=== PATIENT | female | born 1990 | race Caucasian/White ===

== ENCOUNTER 2020-01-10 12:27 | Outpatient (CLI) | payer BC, SELFPAY ==
--- NOTE | ~2020-01-10 | US_ITS ---
EXAMINATION: US pelvic complete w TV EXAM DATE: 01/10/2020 13:15 INDICATION: Irregular periods. TECHNIQUE: Pelvic transabdominal and transvaginal sonogram was performed. There are multiple graysca le and Doppler images available for interpretation. There is no prior study for comparison. FINDINGS: Uterus measures 6.5 x 3.2 x 3.2 cm, and is morphologically normal. Endometrial stripe juana sures 17 mm, borderline enlarged. Could be phasic. There is small free pelvic fluid. Right adnexa: The ovary is not identified. There is no adnexal mass. Left adnexa: The ovary measures 2.5 x 2.3 x 1.9 cm and is morphologically normal. Ovarian vascular fl ow confirmed. IMPRESSION: 1. Borderline endometrial thickening, consider 6 week follow-up pelvic sonogram. Reviewed, dictated and finalized at location A. IMPRESSION: 1. Borderline endometrial thickening, consider 6 week follow-up pelvic sonogra m.
== END 2020-01-10 12:28 | disposition home or self-care (01) ==
PROVIDERS: Visit Provider Student in an Organized Health Care Education/Training Program
DX: N92.6 Irregular menstruation, unspecified (principal)
CPT/HCPCS: 76830; 76856

== ENCOUNTER 2020-03-01 00:16 | Outpatient (CLI) | payer BC, SELFPAY ==
[2020-03-01 18:11] LABS: SARS-CoV-2 RNA PCR Negative
== END 2020-03-01 00:17 | disposition home or self-care (01) ==
LOC: ANHCOVIDDT 00:16
PROVIDERS: Visit Provider Student in an Organized Health Care Education/Training Program
DX: Z20.828 Contact with and (suspected) exposure to other viral communicable diseases (principal); Z01.812 Encounter for preprocedural laboratory examination
CPT/HCPCS: 87635; C9803; U0003

== ENCOUNTER 2020-03-03 02:39 | Day surgery (SDC) | payer BC, SELFPAY ==
[2020-02-21 13:57] VITALS: BMI 42.3
--- NOTE | 2020-03-03 03:36 | PM.IMHP ---
H&P: HPI History of Present Illness Chief complaint: irregular periods Narrative: Mabel Gonzalez is a 30 year old nulligravid female who initially presented to the obstetrics gyn physician office with complaints of irregular menses. During evaluation, an EMB was performed which showed simple and focally complex hyperplasia without atypia. After discussion with patient regarding findings, decision made to proceed with hysteroscopy/D&C for more extensive evaluation of the endometrial cavity. Patient reports feeling well today without complaints. Review of Systems Review of Systems: All systems reviewed & are unremarkable except as noted in HPI and below Constitutional: Constitutional: Reports as per HPI, Reports no additional constitutional complaints, Denies chills, Denies fever(s), Denies headache(s) and Denies night sweats Eyes: Eyes: Reports as per HPI and Reports no additional eye complaints ENT: Reports system reviewed and no additional complaints, except as documented, Reports as per HPI, Reports Normal hearing present and Denies headache(s) Cardiovascular: Cardiovascular: Reports as per HPI, Reports no additional cardiovascular complaints, Denies chest pain and Denies dyspnea Respiratory: Respiratory: Reports as per HPI, Reports no additional respiratory complaints, Denies cough and Denies dyspnea Gastrointestinal: Gastrointestinal: Reports as per HPI, Reports no additional gastrointestinal complaints, Denies abdominal pain, Denies change in bowel habits, Denies change in stool character, Denies nausea and Denies vomiting Genitourinary: Genitourinary: Reports no additional female genitourinary complaints, Reports as per HPI, Denies abnormal vaginal bleeding, Denies genital lesions, Denies hot flashes, Denies dyspareunia, Denies pelvic pain, Denies sexual dysfunction, Denies urinary incontinence, Denies vaginal discharge, Denies vaginal dryness and Denies vaginal odor Musculoskeletal: Musculoskeletal: Reports no additional musculoskeletal complaints and Reports as per HPI Integumentary/Breasts: Skin/Breast: Reports system reviewed and no additional complaints, except as docu, Reports as per HPI, Denies breast pain and Denies nipple discharge Neurologic: Reports system reviewed and no additional complaints, except as documented, Reports as per HPI, Reports Normal hearing present and Denies headache(s) Psychiatric: Psychiatric: Reports no additional psychiatric complaints, Reports as per HPI, Denies anxiety and Denies depression Endocrine: Endocrine: Reports no additional endocrine complaints and Reports as per HPI Hematologic/Lymphatic: Hematologic/Lymphatic: Reports no additional hematologic/lymphatic complaints and Reports as per HPI Allergic/Immunologic: Allergic/Immunologic: Reports no additional allergic/immunologic complaints and Reports as per HPI PMFSH Past Medical History Medical History Anxiety Asthma Benign ovarian tumor Migraine Surgical History Surgical History History of laparoscopy [place] teeth removed Family History Family History Sibling Breast cancer Mother Breast cancer Diabetes mellitus Hypertension Grandparent Diabetes mellitus Acute myocardial infarction Hypertension Cerebrovascular accident Throat cancer Pancreatic cancer Social History Social History Smoking status: Never smoker Alcohol intake: never Substance use: never Meds Home Medications and Allergies Home Medications Medication Instructions Recorded Confirmed Type lemzazczvj-uuaavlsfbgjye-suyhipsr 1 cap PO Q8H PRN 01/04/20 02/21/20 History 50 mg-300 mg-40 mg capsule cetirizine 10 mg capsule 10 mg PO DAILY PRN 01/04/20 02/21/20 History famotidine 20 mg tablet 20 mg PO DAILY PRN 01/04/20 02/21/20 History loratadine 10 mg ca
[2020-03-03 06:45] VITALS: BP 134/80; PULSE 96; RESP 18; TEMP 36.4; O2SAT 100; BMI 42.4
--- NOTE | 2020-03-03 07:24 | WPDHPUPDATE1 ---
History and Physical Update Update Date/Time: 03/03/20 07:24 History and Physical has been reviewed, including an updated exam of the patient. There are NO changes in the patient's condition. Risks, benefits, and alternatives have been discussed and questions answered. Patient agrees to proceed with procedure.
[2020-03-03] MEDS: LACTATED RINGERS 1,000 ML 30 ML IV CONT (07:25)
--- NOTE | 2020-03-03 07:38 | WPDANESEPPF ---
Anes - Initial Pre Proc Eval Procedure: Operation Date: 03/03/20 08:30 Proposed Procedures p Hysteroscopy, Dilation and Curettage, Possible Myosure - Tammie Mendoza MD Date/Time: 03/03/20 07:38 Surgeon: Tammie Mendoza MD Pre Op Diagnosis: irregular periods Patient Data Age: 30 Gender: F Height: 5 ft 2 in Weight: 105.3 kg Last Vital Signs Temp 36.4 C 03/03/20 06:45 Pulse 96 03/03/20 06:45 Resp 18 03/03/20 06:45 BP 134/80 03/03/20 06:45 Pulse Ox 100 03/03/20 06:45 Allergies Allergy/AdvReac Type Severity Reaction Status Date / Time No Known Allergies Allergy Verified 03/03/20 07:31 Home Medications Medication Instructions Recorded Confirmed Type lmtbpoytcq-qywtpfqftibvw-hrbjutcq 1 cap PO Q8H PRN 01/04/20 03/03/20 History 50 mg-300 mg-40 mg capsule cetirizine 10 mg capsule 10 mg PO DAILY PRN 01/04/20 03/03/20 History famotidine 20 mg tablet 20 mg PO DAILY PRN 01/04/20 03/03/20 History loratadine 10 mg capsule 10 mg PO DAILY PRN 01/04/20 03/03/20 History multivitamin 1 tablet PO DAILY 01/04/20 03/03/20 History drospirenone (contraceptive) 4 mg 4 mg PO DAILY 24 Days #3 packet 01/13/20 03/03/20 Rx (28) tablet Patient hx anesthesia problems: none Family hx anesthesia problems: none PMFSH Past Medical History Medical History (Updated 03/03/20 @ 07:39 by Michel Lanier MD) Anxiety Asthma Benign ovarian tumor Migraine Morbid obesity Surgical History Surgical History History of laparoscopy [place] teeth removed Family History Family History Sibling Breast cancer Mother Breast cancer Diabetes mellitus Hypertension Grandparent Diabetes mellitus Acute myocardial infarction Hypertension Cerebrovascular accident Throat cancer Pancreatic cancer Social History Social History Smoking status: Never smoker Alcohol intake: never Substance use: never Anes - Eval Final PreProcedure Day of Procedure 03/03/20 07:38 Patient weight: morbidly obese Heart: regular rate and rhythm Lungs: clear to auscultation Airway: Mallampati scale class II Neurological: alert and oriented Last oral intake: >/= 8 hours ASA classification: III Emergent: no Anesthetic plan: proceed Anesthesia type and monitoring: general GIVS and standard monitoring Informed Consent: The patient's anesthetic plan and its attendant risks and benefits were discussed with the patient/family/POA. Questions were solicited and answers provided to the satisfaction of the patient/family/POA.
[2020-03-03] MEDS: KETOROLAC 30 MG/ML VIAL (*BKC) IV PUSH (08:33)
--- NOTE | 2020-03-03 08:42 | SUR.OPER ---
Ebl=10ml
[2020-03-03 08:48] VITALS: BP 137/86; PULSE 88; RESP 14
--- NOTE | 2020-03-03 09:07 | P.OP_ITS ---
Procedure Note - Detailed Date of procedure: 03/03/20 Pre-op diagnosis: endometrial hyperplasia Post-op diagnosis: same Procedure performed: Hysteroscopy Dilation and curettage Description of procedure: The patient was taken to the operating room where she self transferred to the operating room table. The patient was placed in dorsal supine position. Anesthesia was administered and found to be adequate. The patient was repositioned in the dorsal lithotomy position with the use of Norberto stirrups. Patient was prepped and draped in the usual sterile fashion. A red rubber catheter was used to drain the bladder of 100 cc of yellow urine. A bivalve speculum was inserted into the vagina. The cervix was well visualized and the anterior lip of the cervix was grasped with a single-tooth tenaculum. A paracervical block was performed with 1% lidocaine. 5 cc of lidocaine was administered on either side. The cervix was serially dilated to accommodate a hysteroscope. The hysteroscope was introduced into endometrial cavity. On inspection, the cavity appeared clear with extremely minimal tissue seen. No abnormalities were noted. Bilateral tubal ostia were visualized. Several photographs were taken and the hysteroscope was removed. A medium-sized rigid curette was used to perform a curettage. All quadrants of the endometrial cavity were explored. Scant endometrial tissue was obtained and prepared to be sent to pathology for analysis. The tenaculum was removed. Minimal bleeding was noted from the tenaculum puncture sites. Bleeding was made hemostatic with silver nitrate. Excellent hemostasis was noted. The vagina was cleansed and dried and the speculum was removed. The remainder of the patient was also cleansed and dried. The patient was taken out of the dorsal lithotomy position and awakened from anesthesia without difficulty. She was transported to recovery room in stable condition. All instrument counts were correct at the end of the procedure. The patient tolerated the procedure well. Anesthesia: MAC Surgeon: Tammie Mendoza MD Gis Application Developer: None Estimated blood loss (mL): 10 IV fluids (mL): 700 Urine output (mL): 100 Drains: No Packing: No Pathology: yes (endometrial curettings) Complications: No immediate complications Condition: stable Disposition: PACU Findings: Hysteroscopic fluid: 400cc in/400cc out Intraoperative findings: Normal-appearing endometrial cavity, no abnormalities noted, scant tissue, bilateral tubal ostia visualized.
[2020-03-03 09:15] VITALS: BP 130/74; PULSE 77; RESP 14
[2020-03-03 09:40] VITALS: BP 140/83; PULSE 80; RESP 14
== END 2020-03-03 09:45 | disposition home or self-care (01) ==
PROVIDERS: Visit Provider Student in an Organized Health Care Education/Training Program
PROC: 0U5B8ZZ Destruction of Endometrium, Via Natural or Artificial Opening Endoscopic (ICD-10-PCS; CPT 58563; principal; 2020-03-03 08:30)
DX: N85.00 Endometrial hyperplasia, unspecified (principal); E66.01 Morbid (severe) obesity due to excess calories; Z68.41 Body mass index [BMI] 40.0-44.9, adult
CPT/HCPCS: 58558; 88305; A9270; J0131; J1885; J2250; J2405; J2704; J3010; J7030; J7120

== ENCOUNTER 2023-11-19 17:20 | Emergency (ER) | payer OTHER, SELFPAY ==
[2023-11-19 17:54] VITALS: BP 129/71; PULSE 101; RESP 16; TEMP 36.6; O2SAT 100
--- NOTE | 2023-11-19 18:40 | ED.URI ---
HPI - URI/Sore Throat General Chief Complaint: Upper Respiratory Infection Stated Complaint: sorethroat Time Seen by Provider: 11/19/23 18:35 Source: patient and RN notes reviewed Mode of arrival: ambulatory Limitations: no limitations History of Present Illness HPI Narrative: 33-year-old female presents with concern for sore throat that started this morning she reports painful swallowing headache, fatigue, general malaise. Denies fever. She reports she took cold medicines this morning. Denies known sick contacts MD elicited complaint: sore throat and nasal congestion Related Data Home Medications Medication Instructions Recorded Confirmed wulxhehbig-jaxxwpwkicitz-tkosbkzc 1 cap PO Q8H PRN Migraine Headache 01/04/20 07/02/23 50 mg-300 mg-40 mg capsule cetirizine 10 mg capsule 10 mg PO DAILY PRN Allergy Symptoms 01/04/20 07/02/23 multivitamin (Daily Multi-Vitamin 1 tablet PO DAILY 01/04/20 07/02/23 tablet) atorvastatin 20 mg tablet 20 mg PO DAILY 07/02/23 07/02/23 erenumab-aooe 70 mg/mL 70 mg subcut MONTHLY 07/02/23 07/02/23 subcutaneous auto-injector (Aimovig Autoinjector) finasteride 5 mg tablet 5 mg PO DAILY 07/02/23 07/02/23 metformin 1,000 mg tablet 1,000 mg PO BID 07/02/23 07/02/23 omega 2-yng-koh-fish oil 1,200 mg cap PO 07/02/23 07/02/23 (144 mg-216 mg) capsule (Fish Oil) propranolol 10 mg tablet 10 mg PO .prn 07/02/23 07/02/23 semaglutide 0.25 mg or 0.5 mg (2 0.25 mg subcut WEEKLY 07/02/23 07/02/23 mg/3 mL) subcutaneous pen injector (Ozempic) sertraline 50 mg tablet 50 mg PO DAILY 07/02/23 07/02/23 testosterone enanthate 100 mg/0.5 200 mg subcut WEEKLY 07/02/23 07/02/23 mL subcutaneous auto-injector rimegepant 75 mg disintegrating mg 11/19/23 tablet (Nurtec ODT) Allergies Allergy/AdvReac Type Severity Reaction Status Date / Time No Known Allergies Allergy Verified 11/19/23 18:01 Review of Systems Review of Systems: CONSTITUTIONAL: Reports malaise, fever. Denies chills, sweats, or fever. EYES: Denies visual changes, redness, or discharge. ENT: Reports rhinorrhea, congestion, and sore throat. CARDIOVASCULAR: Denies chest pain, palpitations, or edema. RESPIRATORY: Reports cough. Denies dyspnea. GASTROINTESTINAL: Denies abdominal pain, nausea, vomiting, diarrhea SKIN: Denies rash or itching. MUSCULOSKELETAL: Denies myalgia. NEUROLOGIC: Reports headache. All systems reviewed & are unremarkable except as noted in HPI and below PMFSH Past Medical History Medical History Anxiety Asthma Benign ovarian tumor Hyperlipidemia Migraine Morbid obesity Type 2 diabetes mellitus Surgical History Surgical History H/O dilation and curettage History of hysteroscopy History of laparoscopy [place] teeth removed Family History Family History Sibling Breast cancer Mother Breast cancer Diabetes mellitus Hypertension Grandparent Diabetes mellitus Acute myocardial infarction Hypertension Cerebrovascular accident Throat cancer Pancreatic cancer Social History Social History (Updated 07/02/23 @ 08:04 by Cassie Burns CMA) Smoking status: Never smoker Alcohol intake: never Substance use: current Substance use type: marijuana Lack of Transportation: No Lack of Food: Never True Current Housing: I Have Housing Concerned About Future Housing: No Difficulty Paying Gas/Electric Bills: YES Difficulty Paying for Meds: No Currently Unemployed: No Education: Bachelor's Degree Comments At time of signature, agree with nursing past medical, surgical, social and family history. There is no relevant family history pertinent to the presenting complaint Exam Narrative: GENERAL: Well-appearing, well-nourished, and in no acute distress. HEAD: Normocephalic EYES: PERRL
== END 2023-11-19 18:51 | disposition home or self-care (01) ==
PROVIDERS: Emergency Provider Nurse Practitioner
DX: J06.9 Acute upper respiratory infection, unspecified (principal); F12.90 Cannabis use, unspecified, uncomplicated; J45.909 Unspecified asthma, uncomplicated; E78.5 Hyperlipidemia, unspecified; E11.9 Type 2 diabetes mellitus without complications; E66.01 Morbid (severe) obesity due to excess calories; Z68.41 Body mass index [BMI] 40.0-44.9, adult; F41.9 Anxiety disorder, unspecified
CPT/HCPCS: 87081; 87880; 99213; G0463

== ENCOUNTER 2024-12-07 13:06 | Outpatient (CLI) | payer OTHER, SELFPAY ==
--- NOTE | ~2024-12-07 | US_ITS ---
EXAMINATION: US pelvic complete w TV INDICATION: Abnormal periods. Comparison:No prior studies for comparison. TECHNIQUE: Multiple transabdominal and endovaginal sonographic images of the pelvis performed. FINDINGS: The uterus measures 5.4 x 3.9 x 4.4 cm. The endometrial complex measures 5 mm. The right ovary measures 1 x 1.2 x 1.2 cm and the left ovary measures 3.6 x 3.3 x 3.1 cm. There are small follicles in each ovary. There is a left ovarian simple cyst measuring 3.8 x 3.6 x 2.7 cm. Norm al doppler signal in both ovaries. There is no free fluid in the pelvis. There are no abnormal masses seen on either side. IMPRESSION: 1. Simple cyst of the left ovary measuring 3.8 cm. Reviewed, dictated and finalized at location A.
--- OUTSIDE RECORDS SUMMARY | 2024-12-07 15:14 | XMS_ITS | Encounter Summary ---
Author Organization [facility] - [facility] Address [address] [place] [address] Care Team Providers Care Records Assistant Name Role Phone Anastasia Lawson DO Primary Care Provider [phone] Encounter Details Date Type Department Care Team (Late st Contact Info) Description 05/28/2023 [employer] Message Enc [facility] Medical Group Multispecialty Care - [facility] [address], [address] [place] [address] Pete, [facility] Provider FMLA paperwork Social History Tobacco Use Types Packs/Day Years Used Date Smoking Tobacco: Never Smokeless Tobacco: Never Alcohol Use Standard Drinks/Week Comments Never 0 (1 standard drink = 0.6 oz pur e alcohol) PHQ-2 Answer Date Recorded Patient Health Questionnaire-2 Score 1 03/28/2023 Comments No Sex and Gender Information Value Date Recorded Sex Assigned at Not on file Legal Sex Female 12:13 PM CDT Gender Identity Not on file Sexual Orientation Not on file documented as of this encounter Plan of Treatment Not on file documented as of this encounter Visit Diagnoses Not on filedocumented in this encounter Additional Health Concerns Assessment Noted Time PHQ-9 Depression Total Score: 14 023 7:55 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
--- OUTSIDE RECORDS SUMMARY | 2024-12-07 15:14 | XMS_ITS | Encounter Summary ---
Author Organization [facility] Address [facility] [place] [address] Care Team Providers Care Director Child Abuse Therapy Name Role Phone Anastasia Laswon DO Primary Care Provider [phone] Encounter Details Date Type Department Care Team (Late st Contact Info) Description 06/10/2024 [employer] Message Enc [facility] Medical Group Family Medicine [address], [address] [place] [id number] Anastasia Lawson DO [address] [place], [place] [id number] pap smear Social History Tobacco Use Types Packs/Day Years Used Date Smoking Tobacco: Never Smokeless Tobacco: Never Alcohol Use Standard Drinks/Week Comments Never 0 (1 standard drink = 0.6 oz pur e alcohol) PHQ-2 Answer Date Recorded Patient Health Questionnaire-2 Score 0 11/18/2023 Comments No Sex and Gender Information Value [...] Depression Total Score: 14 023 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
--- OUTSIDE RECORDS SUMMARY | 2024-12-07 15:14 | XMS_ITS | Clinical Summary ---
Author Organization [facility] Address [address] [place] [address] Care Team Providers Care Car Porter Name Role Phone Unavailable Primary Care Provider Unavailabl e Source Comments [facility],non-owned Affiliates and Associated Physician Practices is amultiple site organization consisting of ambulatory clinics and hospital sitesin [place], [place], [place] and [place]. This disclosure is being madepursuant to the Care Everywhere program and may not contain all information available regarding this patient. Last updated 18.[facility] [employer] Social History Tobacco Use Types Packs/Day Years Used Date Smoking Tobacco: Never Assessed Sex and Gender Information Value Date Recorded Sex Assigned at Not on file Gender Identity Not on file Sexual Orientation Not on file Plan of Treatment Health Maintenance Due Date Last Done Comments PAP SMEAR 1990 HIV SCREENING 2005 HEPATITIS C SCREENING 01/26/2008 DTAP/TDAP/TD VACCINES (1 - Tdap) 2009 HEPATITIS B VACCINE (1 of 3 - 19+ 3-dose series) 2009 COVID-19 VACCINE ( - 2023-2 5 season) 2024 INFLUENZA VACCINE (#1) 2024 DEPRESSION SCREENING 09/15/2024 ZOSTER VACCINE (1 of 2) 01/31/2040 HIB VACCINE Aged Out No longer eligi ble based on patient's age to complete this topic HPV VACCINE Aged Out No longer eligi ble based on patient's age to complete this topic MENINGOCOCCAL (Group B) VACC INE SHARED DECISION-MAKING Aged Out No longer eligibl e based on patient's age to complete this topic MENINGOCOCCAL GROUPS A/C/Y/W VACCINE Aged Out No longer eligible b ased on patient's age to complete this topic PNEUMOCOCCAL VACCINE Aged Out No long er eligible based on patient's age to complete this topic
--- OUTSIDE RECORDS SUMMARY | 2024-12-07 15:14 | XMS_ITS | Clinical Summary ---
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 Gender Identity Not on file Sexual Orientation Not on file Plan of Treatment Health Maintenance Due Date Last Done Comments Hepatitis C Virus (HCV) Screening 1990 TdaP Immunization 1990 Hepatitis B Immunization (1 of 3 - 19+ 3-dose series) 2009 Pap Smear 2011 Cervical Cancer Screening (CCS) 01/31/2020 HPV/Cotest 01/31/2020 Influenza Immunization (#1) 2024 SARS-COV-2 Immunization ( season) 2024 Respiratory Syncytial Virus (RSV) Immunization (Adult) (1 - 1-dose 75+ series) 2065 Meningococcal Immunization (ACWY) Aged Out No longer eligible based on patient's age to complete this topic Pneumococcal Immunization Combined Aged Out No longer eligible based on patient's age to complete this topic Rotavirus Immunization Aged Out No lo nger eligible based on patient's age to complete this topic
--- OUTSIDE RECORDS SUMMARY | 2024-12-07 15:14 | XMS_ITS | Encounter Summary ---
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
--- OUTSIDE RECORDS SUMMARY | 2024-12-07 15:14 | XMS_ITS | Encounter Summary ---
Author Organization [facility] - [facility] Address [address] [place] [address] Care Team Providers Care Electrical Engineering Manager Name Role Phone Anastasia Lawson DO Primary Care Provider [phone] Encounter Details Date Type Department Care Team (Late st Contact Info) Description 03/12/2024 [employer] Message Enc [facility] Medical Group Multispecialty Care - [facility] [address] [address], [address] [place] [address] [employer], [facility] Provider Canceled appt. 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 [place] [address] PCP - General FAMILY PRACTICE 09/23/22 documented as of this encounter
--- OUTSIDE RECORDS SUMMARY | 2024-12-07 15:14 | XMS_ITS | Patient Health Record ---
Author Organization [facility], [facility] Address [address] [place] [address] Care Team Providers Care Director Outcomes Name Role Phone Dr. Clark Chadwick Primary Care Provider PrelutskYuri serna Unavailable [phone] Allergies No Known Allergies Results Component Value Reference Range Notes Hemoglobin A1C Reviewed date:09/21/2024 04:25:31 PM Interpretation: Performing Lab: Notes/Report: HbA1c 7.4 Comp. Metabolic Panel (14) Reviewed date:09/22/2024 08:37:23 AM Interpretation: Performing Lab:[facility] [place], [address], [place], Phone - [phone], Director - Mirlande Notes/Report: Glucose 122 70-99 mg/dL BUN 22 6-20 mg/dL Creatinine 0.83 0.57-1.00 mg/dL eGFR 95 >59 mL/min/1.73 BUN/Creatinine Ratio 27 9-23 Sodium 139 134-144 mmol/L Potassium 4.1 3.5-5.2 mmol/L Chloride 101 96-106 mmol/L Carbon Dioxide, Total 19 20-29 mmol/L Calcium 10.4 8.7-10.2 mg/dL Protein, Total 7.5 6.0-8.5 g/dL Albumin 4.9 3.9-4.9 g/dL Globulin, Total 2.6 1.5-4.5 g/dL Bilirubin, Total 0.5 0.0-1.2 mg/dL Alkaline Phosphatase 59 44-121 IU/L AST (SGOT) 28 0-40 IU/L ALT (SGPT) 26 0-32 IU/L Testosterone, Total, LC/MS Reviewed date:09/30/2024 07:21:43 PM Interpretation: Performing Lab:[facility], [address] [facility], Phone - [phone], Director - Ashleigh Notes/Report: Testosterone, Total, LC/MS 226 This test was developed and its performance characteristics determined by [facility]. It has not been cleared or approved by the Food and Drug Administration. Reference Range: Adult Females Premenopausal 10 - 55 Postmenopausal 7 - 40 Hemoglobin A1C Reviewed date:06/17/2024 04:11:26 PM Interpretation: Performing Lab: Notes/Report: HbA1c 6.9 Comp. Metabolic Panel (14) Reviewed date:06/18/2024 08:14:37 PM Interpretation: Performing [facility], [address] [facility], Phone - [phone], Director - Mirlande Notes/Report: Clinical Information:SRC: SRC:TH Glucose 105 70-99 mg/dL BUN 8 6-20 mg/dL Creatinine 0.76 0.57-1.00 mg/dL eGFR 105 >59 mL/min/1.73 BUN/Creatinine Ratio 11 9-23 Sodium 138 134-144 mmol/L Potassium 4.2 3.5-5.2 mmol/L Chloride 99 96-106 mmol/L Carbon Dioxide, Total 24 20-29 mmol/L Calcium 10.3 8.7-10.2 mg/dL Protein, Total 7.7 6.0-8.5 g/dL Albumin 4.8 3.9-4.9 g/dL Globulin, Total 2.9 1.5-4.5 g/dL Bilirubin, Total 0.3 0.0-1.2 mg/dL Alkaline Phosphatase 71 44-121 IU/L AST (SGOT) 23 0-40 IU/L ALT (SGPT) 25 0-32 IU/L CBC With Differential/Platel et Reviewed date:06/18/2024 08:14:37 PM Interpretation: Performing Lab:[facility] [place], [address] [facility], Phone - [phone], Director - Mirlande Notes/Report: Clinical Information:SRC: SRC:TH WBC 11.2 3.4-10.8 x10E3/uL RBC 5.33 3.77-5.28 x10E6/uL Hemoglobin 14.9 11.1-15.9 g/dL Hematocrit 46.1 34.0-46.6 % MCV 87 79-97 fL MCH 28.0 26.6-33.0 pg MCHC 32.3 31.5-35.7 g/dL RDW 13.8 11.7-15.4 % Platelets 336 150-450 x10E3/uL Neutrophils 70 Not Estab. % Lymphs 26 Not Estab. % Monocytes 3 Not Estab. % Eos 1 Not Estab. % Basos 0 Not Estab. % Immature Cells [facility] Neutrophils (Absolute) 7.7 1.4-7.0 x10E3/uL Lymphs (Absolute) 2.9 0.7-3.1 x10E3/uL Monocytes(Absolute) 0.4 0.1-0.9 x10E3/uL Eos (Absolute) 0.1 0.0-0.4 x10E3/uL Baso (Absolute) 0.1 0.0-0.2 x10E3/uL Immature Granulocytes 0 Not Estab. % Immature Grans (Abs) 0.0 0.0-0.1 x10E3/uL NRBC [facility] Hematology Comments: [facility] Hemoglobin A1C Reviewed date:03/17/2024 03:40:43 PM Interpretation: Performing Lab: Notes/Report: HbA1c 6.6 Comp. Metabolic Panel (14) Reviewed date:03/21/2024 05:33:48 PM Interpretation: Performing Lab:[facility] [place], [address] [facility], Phone - [phone], Director - Mirlande Notes/Report: Glucose 106 70-99 mg/dL BUN 10 6-20 mg/dL Creatinine 0.89 0.57-1.00 mg/dL eGFR 87 >59 mL/min/1.73 BUN/Creatinine Ratio 11 9-23 Sodium 138 134-144 mmol/L Potassium 4.2 3.5-5.2 mmol/L Chloride 101 96-106 mmol/L Carbon Dioxide, Total 21 20-29 mmol/L Calcium 9.7 8.7-10.2 mg/dL Protein, Total 7.8 6.0-8.5 g/dL Albumin 4.7 3.9-4.9 g/dL Globulin, Total 3.1 1.5-4.5 g/dL Bilirubin, Total 0.2 0.0-1.2 mg/dL Alkaline Phosphatase 67 44-121 IU/L AST (SGOT) 19 0-40 IU/L ALT (SGPT) 27 0-32 IU/L CBC With Differential/Platel et Reviewed date:03/21/2024 05:33:48 PM Interpretation: Performing Lab:[facility] [place], [address] [facility], Phone - [phone], Director - Mirlande Notes/Report: WBC 9.8 3.4-10.8 x10E3/uL RBC 4.92 3.77-5.28 x10E6/uL Hemoglobin 14.0 11.1-15.9 g/dL Hematocrit 41.3 34.0-46.6 % MCV 84 79-97 fL MCH 28.5 26.6-33.0 pg MCHC 33.9 31.5-35.7 g/dL RDW 13.5 11.7-15.4 % Platelets 337 150-450 x10E3/uL Neutrophils 60 Not Estab. % Lymphs 34 Not Estab. % Monocytes 4 Not Estab. % Eos 1 Not Estab. % Basos 1 Not Estab. % Immature Cells [facility]ER Neutrophils (Absolute) 5.9 1.4-7.0 x10E3/uL Lymphs (Absolute) 3.3 0.7-3.1 x10E3/uL Monocytes(Absolute) 0.4 0.1-0.9 x10E3/uL Eos (Absolute) 0.1 0.0-0.4 x10E3/uL Baso (Absolute) 0.1 0.0-0.2 x10E3/uL Immature Granulocytes 0 Not Estab. % Immature Grans (Abs) 0.0 0.0-0.1 x10E3/uL NRBC [facility] Hematology Comments: [facility] CBC With Differential/Platel et Reviewed date:09/22/2024 08:37:23 AM Interpretation: Performing Lab:[facility], [address] [facility], Phone - [phone], [facility] Notes/Report: WBC 10.5 3.4-10.8 x10E3/uL RBC 5.30 3.77-5.28 x10E6/uL Hemoglobin 14.7 11.1-15.9 g/dL Hematocrit 44.9 34.0-46.6 % MCV 85 79-97 fL MCH 27.7 26.6-33.0 pg MCHC 32.7 31.5-35.7 g/dL RDW 13.9 11.7-15.4 % Platelets 344 150-450 x10E3/uL Neutrophils 62 Not Estab. % Lymphs 31 Not Estab. % Monocytes 4 Not Estab. % Eos 2 Not Estab. % Basos 1 Not Estab. % Immature Cells [employer] [facility]ER Neutrophils (Absolute) 6.6 1.4-7.0 x10E3/uL Lymphs (Absolute) 3.3 0.7-3.1 x10E3/uL Monocytes(Absolute) 0.4 0.1-0.9 x10E3/uL Eos (Absolute) 0.2 0.0-0.4 x10E3/uL Baso (Absolute) 0.1 0.0-0.2 x10E3/uL Immature Granulocytes 0 Not Estab. % Immature Grans (Abs) 0.0 0.0-0.1 x10E3/uL NRBC [facility] Hematology Comments: [facility]ANGE [facility] Ct/GC LUIS CARLOS, Pharyngeal Reviewed date:06/18/2024 08:14:37 PM Interpretation: Performing Lab:[facility], [address] [place] [address], Phone - [phone], Director - Shaji Notes/Report: Clinical Information:SRC: SRC: C. trachomatis, LUIS CARLOS, Pharyn Negative Negative N. gonorrhoeae, LUIS CARLOS, Pharyn Negative Negative Chlamydia/GC Amplification Reviewed date:06/20/2024 08:30:45 PM Interpretation: Performing Lab:[facility], [address] [place] [address], Phone - [phone], Director - Shaji Notes/Report: Clinical Information:SRC: SRC:TH Chlamydia trachomatis, LUIS CARLOS Negative Negative Neisseria gonorrhoeae, LUIS CARLOS Negative Negative HIV 1/2 Antibody Panel 35343 5 Reviewed date:06/18/2024 08:14:37 PM Interpretation: Performing Lab:[facility], [address] [place] [address], Phone - [phone], Director - Mirlande Notes/Report: Clinical Information:SRC: SRC: HIV Ab/p24 Ag Screen Non Reactive Non Reactive HIV-1/HIV-2 antibodies and HIV-1 p24 antigen were NOT detected. There is no laboratory evidence of HIV infection. HIV Negative Testosterone, Total, LC/MS Reviewed date:07/05/2024 08:03:59 AM Interpretation: Performing Lab:[facility], [address] [facility], [facility], Phone - [phone], Director - [facility] Notes/Report: Clinical Information:SRC: SRC: Testosterone, Total, LC/MS 410 This test was developed and its performance characteristics determined by [facility]. It has not been cleared or approved by the Food and Drug Administration. Reference Range: Adult Females Premenopausal 10 - 55 Postmenopausal 7 - 40 RPR Reviewed date:06/18/2024 08:14:37 PM Interpretation: Performing Lab:[facility] [place], [address], [place], Phone - [phone], Director [facility] Notes/Report: Clinical Information:SRC: SRC:TH RPR Non Reactive Non Reactive Hemoglobin A1C Reviewed date:12/18/2023 03:46:00 PM Interpretation: Performing Lab: Notes/Report: HbA1c 6.2% TESTOSTERONE, TOTAL, LC/MS/M S Reviewed date:12/21/2023 08:56:09 PM Interpretation: Performing Lab:[facility], [facility] [place] [address], [address]ou[facility]jcqwCJ[address] Tamie Warren MD,PhD Notes/Report: 0; 0; 0 TESTOSTERONE, TOTAL, MS 207 2-45 ng/dL For additional information, please refer to [email or web address]/faq/Tot alTestosteroneLCMSMS (This link is being provided for informational/education al purposes only.) (Note) This test was developed and its analytical performance characteristics have been determined by [facility]. It has not been cleared or approved by the FDA. This assay has been validated pursuant to the CLIA regulations and is used for clinical purposes. [facility] [address] [address],[address] [facility] [address] Tamie Warren MD, PhD CBC (INCLUDES DIFF/PLT) Reviewed date:12/20/2023 09:49:03 AM Interpretation: Performing Lab:JUAN JOSÉ, [facility] HospitalItv[facility] [place] [phone] [facility] Notes/Report: 0; 0; 0 WHITE BLOOD CELL COUNT 9.1 3.8-10.8 Thousand/ uL RED BLOOD CELL COUNT 4.96 3.80-5.10 Million/uL HEMOGLOBIN 14.1 11.7-15.5 g/dL HEMATOCRIT 43.7 35.0-45.0 % MCV 88.1 80.0-100.0 fL MCH 28.4 27.0-33.0 pg MCHC 32.3 32.0-36.0 g/dL RDW 13.8 11.0-15.0 % PLATELET COUNT 301 140-400 Thousand/uL MPV 10.9 7.5-12.5 fL ABSOLUTE NEUTROPHILS 5269 5849-5489 cells/uL ABSOLUTE LYMPHOCYTES 3357.9 850-3900 cells/uL ABSOLUTE MONOCYTES 282 200-950 cells/uL ABSOLUTE EOSINOPHILS 127 15-500 cells/uL ABSOLUTE BASOPHILS 64 0-200 cells/uL NEUTROPHILS 57.9 LYMPHOCYTES 36.9 MONOCYTES 3.1 EOSINOPHILS 1.4 BASOPHILS 0.7 COMPREHENSIVE METABOLIC PANE L Reviewed date:12/20/2023 09:49:03 AM Interpretation: Performing Lab:JUAN JOSÉ, [facility] HospitalVmgcr[address] [place] [phone] [facility] Notes/Report: 0; 0; 0 GLUCOSE 93 65-99 mg/dL Fasting reference interval UREA NITROGEN (BUN) 12 7-25 mg/dL CREATININE 0.73 0.50-0.97 mg/dL EGFR 111 > OR = 60 mL/min/1.73m2 BUN/CREATININE RATIO SEE NOTE: 6-22 (calc) Not Reported: BUN and Creatinine are within reference range. SODIUM 136 135-146 mmol/L POTASSIUM 4.0 3.5-5.3 mmol/L CHLORIDE 101 98-110 mmol/L CARBON DIOXIDE 25 20-32 mmol/L CALCIUM 10.0 8.6-10.2 mg/dL PROTEIN, TOTAL 7.8 6.1-8.1 g/dL ALBUMIN 4.8 3.6-5.1 g/dL GLOBULIN 3.0 1.9-3.7 g/dL (calc) ALBUMIN/GLOBULIN RATIO 1.6 1.0-2.5 (calc) BILIRUBIN, TOTAL 0.6 0.2-1.2 mg/dL ALKALINE PHOSPHATASE 53 31-125 U/L AST 15 10-30 U/L ALT 20 6-29 U/L Reason For Referral Reason Migraines, refractor y to multiple medical therapies Diagnosis 1 Chronic migraine w/o aura w/o status migrainosus, not intractable (G43.709) Referral Organization [facility], [facility] Referring Provider First Name Clark Referring Provider Last Name [facility] Referring Provider Speciality Internal edicine Referred Provider Specialty Neurology General Notes Teresa Pollack 02/10/20 24 06:14:00 AM > [facility] o [facility] Referral Priority Routine Reason ADHD evaluation Diagnosis 1 Concentration defici t (R41.840) Referral Organization [facility], [facility] Referring Provider First Name Clark Referring Provider Last Name Ramseyvelma Referring Provider Speciality Internal edicine Referred Provider Specialty Psychologist General Notes Teresa Pollack 09/25/19 25 10:55:20 AM > sent to [facility] Referral Priority Routine Medications Medication SIG (Take, Route, Frequency, Duration) Notes Start Date End Date Status Needle (Disp) 23G X 1-1/4 as directed to inject medication as directed for 90 days Active Albuterol Sulfate HFA 108 (90 Base) mcg/act 2 puffs as needed Inhalation every 4 hrs Active Sertraline HCl 50 MG TAKE 1 TABLET BY MO UTH EVERY DAY for 90 Active Needle (Disp) 18G X 1-1/2 as directed to draw up medication as directed for 90 days Active Propranolol HCl 10 MG 1 tablet Orally On ce a day Active metFORMIN HCl 1000 MG TAKE 1 TABLET BY M OUTH TWICE DAILY WITH A MEAL for 90 Active Farxiga 10 MG 1 tablet Orally Once a day for 30 days 09/22/2024 03/21/2025 Active Slynd 4 MG 1 tablet Orally Once a day Active Sertraline HCl 50 MG 1.5 tablet Orally O nce a day for 90 days Active Ozempic (0.25 or 0.5 MG/DOSE) 2 MG/3ML 0.25mg Subcutaneous weekly Active Atorvastatin Calcium 20 MG 1 tablet Orally Once a day for 90 days 06/18/2023 Active metFORMIN HCl 1000 MG 1 tablet with a me al Orally Twice a day Active Nortriptyline HCl 25 MG 1 capsule at [facility] Orally Once a day for 30 days 01/08/2024 Active Aimovig 70 MG/ML as directed Subcutan eous monthly Active Testosterone Cypionate 200 MG/ML 0.6 ml Intramuscular weekly for 28 days 09/30/2024 Active Meloxicam 15 MG TAKE 1 TABLET BY CHERYL TH EVERY DAY for 30 Active Finasteride 5 MG TAKE 1 TABLET BY CHERYL TH EVERY DAY for 30 Active Fioricet 50-300-40 MG 2 capsule as neede d Orally every day for 30 days 09/21/2024 Active Ondansetron 4 MG 1 tablet on the tong ue and allow to dissolve Orally Once a day Active Multivitamin Active Ubrelvy 100 MG 1 tablet may take se cond dose at least 2 hours after first dose as needed Orally Once a day Active Cetirizine HCl 10 MG 1 tablet Orally Onc e a day 06/18/2023 Active Syringe (Disposable) 1 ML as directed In jejony weekly for 90 days Active Immunizations Vaccine Route Administration Date Status Comme nts Flulaval IM Intramuscular 06/18/2023 Administered Social History Tobacco Use: Social History Observation Description Date Details (start date - stop date) Never Smoker NA - NA Sex Assigned At : Social History Observation Description Sex Assigned At Female Tobacco Use/Smoking Question Answer Notes Smoking Status: nonsmoker Tobacco use other than smoking: Question Answer Notes Are you an other tobacco user? No Problems Problem Type SNOMED Code ICD Code Onset Dates Problem Status W/U Status Risk Notes Problem 133548161 Type 2 diabetes mellitus without complication, without long-term current use of insulin (E11.9) Active confirmed Problem Gender dysphoria (46887503) Gender dysphoria (F64.9) Active confirmed Problem 64859798 Anxiety (F41.9) Active confirmed Problem 84002686 SESAR (obstructive sleep apnea) (G47.33) Active confirmed Problem 439542908 MDD (major depressive disorder), recurrent episode, moderate (F33.1) Active confirmed Problem 726828075 Asthma, mild intermittent, well-controlled (J45.20) Active confirmed Problem 24673932 Concentration deficit (R41.840) Active confirmed Problem 005224667 Chronic migraine w/o aura w/o status migrainosus, not intractable (G43.709) Active confirmed Problem Endometrial hyperplasia without atypia ([id number] [id number]) Endometrial hyperplasia without atypia (N85.00) Active confirmed Vital Signs Heart Rate 118 /min 09/21/2024 Temperature 97.2 degrees Fahrenheit 09/21/2024 Respiratory Rate 14 /min 09/21/2024 Blood pressure diastolic 78 mm Hg 09/21/2024 Oximetry 96 % 09/21/2024 Height 62.2 in 09/21/2024 Blood pressure systolic 122 mm Hg 09/21/2024 Weight 237 lbs 09/21/2024 BMI 43.06 kg/m2 09/21/2024 Procedures Procedure Date Ordered Date Performed Result Body Sit e EAR IRRIGATION - Bilateral 12/18/2023 N/A EAR IRRIGATION - Bilateral 03/17/2024 N/A Encounters Encounter Location Date Provider Diagnosis [address] [address] 12/18/2023 Clark Tochtrop Chronic migraine w/o aura w/o status migrainosus, not intractable G43.709 ; Type 2 diabetes mellitus without complication, without long-term current use of insulin E11.9 ; Anxiety F41.9 ; MDD (major depressive disorder), recurrent episode, moderate F33.1 ; Asthma, mild intermittent, well-controlled J45.20 ; SESAR (obstructive sleep apnea) G47.33 ; Endometrial hyperplasia without atypia N85.00 ; Micturition syncope R55 ; 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 ; Gender dysphoria F64.9 ; Acute pain of left shoulder M25.512 and Cerumen impaction H61.[address] [address] 03/17/2024 Clark Tochtrop Chronic migraine w/o aura w/o status migrainosus, not intractable G43.709 ; Type 2 diabetes mellitus without complication, without long-term current use of insulin E11.9 ; Anxiety F41.9 ; MDD (major depressive disorder), recurrent episode, moderate F33.1 ; Asthma, mild intermittent, well-controlled J45.20 ; SESAR (obstructive sleep apnea) G47.33 ; Endometrial hyperplasia without atypia N85.00 ; Micturition syncope R55 ; 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 ; Gender dysphoria F64.9 ; Acute pain of left shoulder M25.512 and Cerumen impaction H61.[address] [address] 06/17/2024 Clark Tochtrop Chronic migraine w/o aura w/o status migrainosus, not intractable G43.709 ; Type 2 diabetes mellitus without complication, without long-term current use of insulin E11.9 ; Anxiety F41.9 ; MDD (major depressive disorder), recurrent episode, moderate F33.1 ; Asthma, mild intermittent, well-controlled J45.20 ; SESAR (obstructive sleep apnea) G47.33 ; Endometrial hyperplasia without atypia N85.00 ; Micturition syncope R55 ; 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 ; Gender dysphoria F64.9 ; Acute pain of left shoulder M25.512 ; Cerumen impaction H61.20 and High risk sexual behavior, unspecified type Z72.[address] [address] 07/22/2024 [facility] Finger pain, right M79.[address] [address] 09/21/2024 [facility] Chronic migraine w/o aura w/o status migrainosus, not intractable G43.709 ; Type 2 diabetes mellitus without complication, without long-term current use of insulin E11.9 ; Anxiety F41.9 ; MDD (major depressive disorder), recurrent episode, moderate F33.1 ; Asthma, mild intermittent, well-controlled J45.20 ; SESAR (obstructive sleep apnea) G47.33 ; Endometrial hyperplasia without atypia N85.00 ; Micturition syncope R55 ; 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 ; Gender dysphoria F64.9 ; Acute pain of left shoulder M25.512 ; Cerumen impaction H61.20 ; High risk sexual behavior, unspecified type Z72.51 and Concentration deficit R41.[address] [address] 12/21/2023 [facility] Gender dysphoria F64.[address] [address] 12/25/[address] [address] 07/05/[address] [place] [address] 09/22/2024 [facility], [facility] [address] [place] [address] 09/30/2024 [facility] Gender dysphoria F64.9 [facility], [facility] [address] [place] [address] 12/22/2023 [facility], [facility] [address] [place] [address] 12/25/2023 [facility] Chronic migraine w/o aura w/o status migrainosus, not intractable G43.709 [facility], [facility] [address] [place] [address] 01/07/2024 [facility], [facility] [address] [place] [address] 01/07/2024 [facility], [facility] [address] [place] [address] 01/08/2024 [facility], [facility] [address] [place] [address] 01/28/2024 [facility], [facility] [address] [place] [address] 02/06/2024 [facility], [facility] [address] [place] [address] 03/23/2024 [facility], [facility] [address] [place] [address] 04/02/2024 [facility], [facility] [address] [place] [address] 04/02/2024 [facility] Gender dysphoria F64.9 [facility], [facility] [address] [place] [address] 06/24/2024 [facility] Gender dysphoria F64.9 [facility], [facility] [address] [place] [address] 07/05/2024 [facility] Gender dysphoria F64.9 [facility] [address] [place] [address] 07/17/2024 [facility], [facility] [address] [place] [address] 09/22/2024 [facility], [facility] [address] [place] [address] 09/30/2024 [facility], [facility] [address] [place] [address] 11/03/2024 [facility], [facility] [address] [place] [address] 11/15/2024 [facility], [address] [place] [address] 11/16/2024 [facility] Assessments Encounter Date Diagnosis (ICD Code) Assessment Notes Treatment Notes Treatment Clinical Notes Section Notes 12/18/2023 Chronic migraine w/o aura w/o status migrainosus, not intractable (ICD-10 - G43.709) 12/21/2023 Gender dysphoria (ICD-10 - F64.9) 12/25/2023 Chronic migraine w/o aura w/o status migrainosus, not intractable (ICD-10 - G43.709) 03/17/2024 Chronic migraine w/o aura w/o status migrainosus, not intractable (ICD-10 - G43.709) 04/02/2024 Gender dysphoria (ICD-10 - F64.9) 06/17/2024 Chronic migraine w/o aura w/o status migrainosus, not intractable (ICD-10 - G43.709) 06/24/2024 Gender dysphoria (ICD-10 - F64.9) 07/05/2024 Gender dysphoria (ICD-10 - F64.9) 07/22/2024 Finger pain, right (ICD-10 - M79.644) I'm sure of the ideology of this patient's finger pain. It doesn't seem to have any signs of infection or any red flag signs in general. Could be some nerve damage due to previous hang nails and skin tearing in that area. I encouraged the patient to continue to monitor this and to let us know if anything changes with it 09/21/2024 Type 2 diabetes mellitus without complication, without long-term current use of insulin (ICD-10 - E11.9) 09/21/2024 Chronic migraine w/o aura w/o status migrainosus, not intractable (ICD-10 - G43.709) 09/30/2024 Gender dysphoria (ICD-10 - F64.9) 09/21/2024 Anxiety (ICD-10 - F41.9) 06/17/2024 Type 2 diabetes mellitus without complication, without long-term current use of insulin (ICD-10 - E11.9) 03/17/2024 Type 2 diabetes mellitus without complication, without long-term current use of insulin (ICD-10 - E11.9) 12/18/2023 Type 2 diabetes mellitus without complication, without long-term current use of insulin (ICD-10 - E11.9) 12/18/2023 Anxiety (ICD-10 - F41.9) 03/17/2024 Anxiety (ICD-10 - F41.9) 06/17/2024 Anxiety (ICD-10 - F41.9) 09/21/2024 MDD (major depressive disorder), recurrent episode, moderate (ICD-10 - F33.1) 09/21/2024 Asthma, mild intermittent, well-controlled (ICD-10 - J45.20) 06/17/2024 MDD (major depressive disorder), recurrent episode, moderate (ICD-10 - F33.1) 03/17/2024 MDD (major depressive disorder), recurrent episode, moderate (ICD-10 - F33.1) 12/18/2023 MDD (major depressive disorder), recurrent episode, moderate (ICD-10 - F33.1) 12/18/2023 Asthma, mild intermittent, well-controlled (ICD-10 - J45.20) 03/17/2024 Asthma, mild intermittent, well-controlled (ICD-10 - J45.20) 09/21/2024 SESAR (obstructive sleep apnea) (ICD-10 - G47.33) 06/17/2024 Asthma, mild intermittent, well-controlled (ICD-10 - J45.20) 09/21/2024 Endometrial hyperplasia without atypia (ICD-10 - N85.00) 03/17/2024 SESAR (obstructive sleep apnea) (ICD-10 - G47.33) 06/17/2024 SESAR (obstructive sleep apnea) (ICD-10 - G47.33) 12/18/2023 SESAR (obstructive sleep apnea) (ICD-10 - G47.33) 03/17/2024 Endometrial hyperplasia without atypia (ICD-10 - N85.00) 06/17/2024 Endometrial hyperplasia without atypia (ICD-10 - N85.00) 12/18/2023 Endometrial hyperplasia without atypia (ICD-10 - N85.00) 09/21/2024 Micturition syncope (ICD-10 - R55) 09/21/2024 Female pattern hair loss (ICD-10 - L65.8) 12/18/2023 Micturition syncope (ICD-10 - R55) 03/17/2024 Micturition syncope (ICD-10 - R55) 06/17/2024 Micturition syncope (ICD-10 - R55) 06/17/2024 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 Will be scanned into the chart 03/17/2024 Female pattern hair loss (ICD-10 - L65.8) 12/18/2023 Female pattern hair loss (ICD-10 - L65.8) 03/17/2024 Gender dysphoria (ICD-10 - F64.9) Informed consent reviewed and signed at today's appointment. Will be scanned into the chart 06/17/2024 Gender dysphoria (ICD-10 - F64.9) Informed consent reviewed and signed at today's appointment. Will be scanned into the chart 12/18/2023 Gender dysphoria (ICD-10 - F64.9) Informed consent reviewed and signed at today's appointment. Will be scanned into the chart 09/21/2024 Acute pain of left shoulder (ICD-10 - M25.512) 09/21/2024 Cerumen impaction (ICD-10 - H61.20) 12/18/2023 Acute pain of left shoulder (ICD-10 - M25.512) 06/17/2024 Acute pain of left shoulder (ICD-10 - M25.512) 03/17/2024 Acute pain of left shoulder (ICD-10 - M25.512) 03/17/2024 Cerumen impaction (ICD-10 - H61.20) 06/17/2024 Cerumen impaction (ICD-10 - H61.20) 12/18/2023 Cerumen impaction (ICD-10 - H61.20) 09/21/2024 High risk sexual behavior, unspecified type (ICD-10 - Z72.51) 09/21/2024 Concentration deficit (ICD-10 - R41.840) 06/17/2024 High risk sexual behavior, unspecified type (ICD-10 - Z72.51) Plan Of Treatment Pending Test Test Name Order Date EAR IRRIGATION - Bilateral 12/18/2023 EAR IRRIGATION - Bilateral 03/17/2024 Next Appt Details Provider Name:Clark Badillo Stephanie carreon, 12/20/2024 03:10:00 PM, [address] [place], [address], Insurance Providers Payer Name Payer Address Payer Phone Subscriber Number Group Number Insured Name Patient Relationship to Insured Coverage Start Date Coverage End Date [facility] [address] [place] [phone] [id number] Mabel Gonzalez Self - patient is the insured Medications Administered Medication Instructions Date of Administration Dosage Notes Testosterone 06/18/2023 0.25 mL Medical (General) History Medical History History ICD Code Colonoscopy: No DEXA (Bone Density) Scan: No Mammogram: No Pap: April 2022 AIDS/HIV: No alcohol abuse: No acid reflux: Yes allergies, food: No allergies, seasonal: Yes anemia: No arthritis: No asthma: Yes attention deficit disorder: No anxiety: Yes bipolar disorder: No bladder infections, chronic: No : No chronic diarrhea: No cough, chronic: No dementia: No depression: Yes deep vein thrombosis: No diabetes mellitus: Yes drug abuse: No eating disorder: No gout: No insomnia: No inflammatory bowel disease: No myocardial infarction: No neuropathy: No panic attacks: Yes osteoporosis: No pulmonary embolism: No rheumatoid arthritis: No seizures: No sleep apnea: Yes stroke: No white coat hypertension: No Other not mentioned: Chronic migraines
--- OUTSIDE RECORDS SUMMARY | 2024-12-07 15:14 | XMS_ITS | Encounter Summary ---
Author Organization [facility] Address [facility] [place] [address] Care Team Providers Care Braille Teacher Name Role Phone Anastasia Lawson DO Primary Care Provider [phone] Encounter Details Date Type Department Care Team (Late st Contact Info) Description 08/20/2023 Webbynode Message Enc [facility] Medical Group Family Medicine [address], [address] [place] [address] Pete, [facility] Provider FMLA Social History Tobacco Use Types Packs/Day Years [...] Total Score: 14 023 7:55 AM MANAGER MINING documented as of this encounter Care Teams Braille Teacher Relationship Specialty Start Date End Date Anastasia Lawson DO [address] [place] [address] PCP - General FAMILY PRACTICE 1/9/23 documented as of this encounter
--- OUTSIDE RECORDS SUMMARY | 2024-12-07 15:14 | XMS_ITS | Clinical Summary ---
Author Organization [facility] Address [facility] [place] [address] Care Team Providers Care Agricultural Agent Name Role Phone Anastasia Lawson DO Primary Care Provider [phone] Allergies Active Allergy Reactions Criticality Noted Date Comments Short Ragweed Pollen Ext Eyes Water & It ch,Runny Nose,Shortness of Breath,Sneezing High 06/04/1995 Medications cetirizine (ZYRTEC) 10 MG tablet 12/03/19 14 Active SLYND 4 MG Tab 02/29/20 22 Active famotidine (PEPCID) 20 MG tablet 04/03/20 17 Active loratadine (CLARITIN) 10 MG tablet 01/03/20 02 Active butalbital-acetami nophen-caffeine (FIORICET) 50-300-40 MG capsuleIndications :Chronic migraine without aura without status migrainosus, not intractable Take 1 capsule by mouth every 4 (four) hours as needed. 60 capsule 3 06/05/20 22 Active albuterol sulfate HFA 108 (90 Base) MCG/ACT inhalerIndications :Mild intermittent asthma, unspecified whether complicated (HHS/HCC) Inhale 2 puffs into the lungs every 6 (six) hours as needed. 8 g 06/05/20 22 Active fish oil (OMEGA-3 FATTY ACID) 1000 MG Cap capsule Take 1 capsule (1,000 mg total) by mouth 2 (two) times daily. Active propranolol (INDERAL) 10 MG tabletIndications: PHILLIP (generalized anxiety disorder),Chronic migraine without aura without status migrainosus, not intractable Take 1 tablet (10 mg total) by mouth daily as needed. 30 tablet 1 11/19/19 Active ondansetron (ZOFRAN-ODT) 4 MG disintegrating tablet Take 1 tablet (4 mg total) by mouth every 8 (eight) hours as needed for Nausea. 20 tablet 01/15/20 Active dicyclomine (BENTYL) 20 MG tablet Take 1 tablet (20 mg total) by mouth every 6 (six) hours. 30 tablet 01/15/20 Active Additional Information Patient not taking.Reported on 11/18/2023 ubrogepant (UBRELVY) 100 MG tabletIndications: Migraine without aura, not intractable, without status migrainosus Take 1 tablet (100 mg total) by mouth 2 (two) times daily as needed for Migraine. 16 tablet 11 03/28/20 Active Additional Information Patient not taking.Reported on 11/18/2023 atorvastatin (LIPITOR) 20 MG tabletIndications: Mixed hyperlipidemia Take 1 tablet (20 mg total) by mouth nightly at bedtime. 90 tablet 3 04/15/20 Active sertraline (ZOLOFT) 50 MG tabletIndications: PHILLIP (generalized anxiety disorder) Take 1 tablet (50 mg total) by mouth daily. 90 tablet 1 04/15/20 Active AIMOVIG 70 MG/ML Solution Auto-injectorIndic ations:Chronic migraine without aura without status migrainosus, not intractable ADMINISTER 1 ML UNDER THE SKIN EVERY 30 DAYS 3 mL 1 06/27/20 Active B-D 3CC LUER-HARRISON SYR 85VR8-3/2 23G X 1-/2 3 ML Misc USE DIRECTED WEEKLY 06/19/20 Active BD DISP NEEDLE 23G X 1 Misc 07/13/20 Active testosterone cypionate (DEPO TESTOSTERONE) 200 MG/ML injection ADMINISTER 0.25 ML IN THE MUSCLE WEEKLY Active OZEMPIC, 0.25 OR 0.5 MG/DOSE, 2 MG/3ML injection (PEN) 0.25mg Subcutaneous weekly 06/18/20 Active metFORMIN (GLUCOPHAGE) 1000 MG tablet every 12 (twelve) hours. 06/18/20 Active rimegepant (NURTEC) 75 MG disintegrating tabletIndications: Migraine without aura, not intractable, without status migrainosus Take 1 tablet (75 mg total) by mouth as needed. Max of 1 tablet (75 mg) in 24 hours. 16 tablet 11 07/15/20 23 Active Active Problems Problem Noted Date Diagnosed Date Type 2 diabetes mellitus wit h hyperglycemia, without long-term current use of insulin ([facility]) 11/18/2022 Mixed hyperlipidemia 11/18/2022 PHILLIP (generalized anxiety disorder) 11/18/2022 Seasonal allergic rhinitis due to pollen 022 Mild intermittent asthma, un specified whether complicated ([facility]) 06/05/2022 Anxiety 06/05/2022 Depressed mood 06/05/2022 Endometrial hyperplasia without atypia, complex 12/03/2019 Chronic migraine without aur a without status migrainosus, not intractable 07/04/2011 Immunizations Name Administration Dates Next Due Influenza (Generic) 06/13/2021 Influenza Adult (Generic) 06/29/2022 MODERNA COVID-19 (WAREHOUSE TRAFFIC SUPERVISOR JEFFREY MICHELLE), MRNA, LNP-S, PF, 50 MCG/ 0.25 ML DOSE 01/19/2022 Pneumococcal (Pneumovax 23) 07/17/2022 Tdap (Adacel) 07/17/2022 Family History Medical History Relation Comments Alcohol Abuse Father Recovered in the late 90s, currently able to drink in moderation Asthma Father Cancer Father Skin cancer (mon itored and removed) Hypertension Father Arthritis Maternal Aunt 1 Degenerative Hypertension Maternal Aunt 1 Arthritis Maternal Aunt 2 Degenerative Hypertension Maternal Aunt 2 Alcohol Abuse Maternal Grandfather Arthritis Maternal Grandfather Cancer Maternal Grandfather Throat canc er - cured by surgery Heart Disease Maternal Grandfather Quadruple b ypass, cardiac arrest - cause of Hypertension Maternal Grandfather Arthritis Maternal Grandmother Cancer Maternal Grandmother Lung, stoma ch, & uterine cancer Diabetes Maternal Grandmother Heart Disease Maternal Grandmother Congestive heart failure - complication of diabetes medication couldn t control Hypertension Maternal Grandmother Stroke Maternal Grandmother Hypertension Mother Miscarriages / Stillbirths Mother Hypertension Paternal Aunt Great aunt - twi n sister paternal grandmother Mental Health Paternal Aunt Anxiety, Great a unt - twin of paternal grandmother Vision loss Paternal Aunt Great aunt - mac ular degeneration Hypertension Paternal Grandfather Vision loss Paternal Grandfather Cataracts Cancer Paternal Grandmother Pancreatic - cause of Hypertension Paternal Grandmother Alcohol Abuse Paternal Uncle Currently untrea rae Relation Status Comments Father Maternal Aunt 1 Maternal Aunt 2 Maternal Grandfather Maternal Grandmother Mother Paternal Aunt Paternal Grandfather Paternal Grandmother Paternal Uncle Social History Tobacco Use Types Packs/Day Years Used Date Smoking Tobacco: Never Smokeless Tobacco: Never Tobacco Cessation:Counseling Given: No Alcohol Use Standard Drinks/Week Comments Never 0 (1 standard drink = 0.6 oz pur e alcohol) PHQ-2 Answer Date Recorded Patient Health Questionnaire-2 Score 0 11/18/2023 Comments No Sex and Gender Information Value Date Recorded Sex Assigned at Not on file Legal Sex Female 12:13 PM CDT Gender Identity Not on file Sexual Orientation Not on file Last Filed Vital Signs Vital Sign Reading Time Taken Comments Blood Pressure 116/82 11/18/2023 1:42 PM SUPERVISOR HOT DIP PLATING Pulse 93 11/18/2023 1:42 PM SUPERVISOR H[employer] DIP PLATING Temperature 37.2 C (99 F) 11/18/2023 1:42 PM SUPERVISOR HOT DIP PLATING Respiratory Rate 17 07/15/2023 11:03 AM CDT Oxygen Saturation 97% 11/18/2023 1:42 PM SUPERVISOR HOT DIP PLATING Inhaled Oxygen Concentration - - Weight 104.3 kg (230 lb) 11/18/2023 1:42 PM SUPERVISOR HOT DIP PLATING Height 157.5 cm (5' 2 ) 11/18/2023 1:42 PM SUPERVISOR HOT DIP PLATING Body Mass Index 42.07 11/18/2023 1:42 PM SUPERVISOR HOT DIP PLATING Plan of Treatment Health Maintenance Due Date Last Done Comments Cervical Cancer Screening Pa p Smear (Age 30 to 64) Every 3 Years 1990 Kidney Health Evaluation 1990 Diabetes: Retinopathy Eye Exam 01/31/2008 Hepatitis B Vaccines (1 of 3 - 19+ 3-dose series) 2009 Cervical Cancer Screening Pa p with HPV Testing (Age 30 to 64) Every 5 Years 01/31/2020 Cervical Cancer Screening wi th HPV 01/31/2020 Annual Physical 07/17/2023 07/17/2022 Pneumococcal Vaccine: Pediatrics (0 to 5 Years) and At-Risk Patients (6 to 64 Years) (2 of 2 - PCV) 07/17/2023 07/17/2022 Hemoglobin A1C 09/06/2023 03/07/2023, 10/14/2022, 07/02/2022 Lipid Panel 03/07/2024 03/07/2023, 06/19/2022 COVID-19 Vaccine (4 - 2023-2 5 season) 2024 01/19/2022, 01/05/2021, 12/15/2020 Influenza Adult (#1) 2024 06/29/2022, 06/13/2021 PHQ-2 ([place]) 09/15/2024 11/18/2023 DTaP, Tdap and Td Vaccines ( 2 - Td or Tdap) 07/17/2032 07/17/2022 Hepatitis C Completed 06/19/2022 HPV Vaccines Aged Out No longer eligi ble based on patient's age to complete this topic Meningococcal B Vaccine Aged Out No l onger eligible based on patient's age to complete this topic Meningococcal Vaccine Aged Out No otilia edilia eligible based on patient's age to complete this topic RSV Immunizations Under 20 Months Aged Out No longer eligible b ased on patient's age to complete this topic Procedures Procedure Name Priority Date/Time Associated Diagnosis Comments LIPID PANEL Routine 03/07/2023 7:29 AM CDT HEMOGLOBIN, GLYCOSYLATED Routine 03/07/2023 7:29 AM CDT HEPATITIS C ANTIBODY W/RFX TO HCV RNA Routine 06/19/2022 7:04 AM CDT from Last 3 Months or Most Recently Relevant to Health Maintenance Results * (ABNORMAL) HEMOGLOBIN, GLYCOSYLATED (03/07/2023 7:29 AM CDT) HGB A1C 6.0(H) <5.7 % of total Hgb [place] Comment: For someone without known diabetes, a hemoglobin A1c value between 5.7% and 6.4% is consistent with prediabetes and should be confirmed with a follow-up test. For someone with known diabetes, a value <7% indicates that their diabetes is well controlled. A1c targets should be individualized based on duration of diabetes, age, comorbid conditions, and other considerations. This assay result is consistent with an increased risk of diabetes. Currently, no consensus exists regarding use of hemoglobin A1c for diagnosis of diabetes for children. 03/07/2023 7:29 AM CDT 03/07/2023 7:30 AM CDT Narrative [facility] [place] [facility] - 03/08/2023 3:51 AM CDT FASTING:YES FASTING: YES Resulting Agency Comment Performing Organization Information: Site ID: [id number] Name: [facility] Address: [address] [place] [address] Director: Nirali Parekh us Anastasia Lulu DO LABORATORY Final Result [facility] [place], [place] [address] [place] [address], * (ABNORMAL) LIPID PANEL (03/07/2023 7:29 AM CDT) CHOLESTEROL 105 <200 mg/dL [facility] HDL 33(L) > OR = 50 mg/dL [facility] TRIGLYCERIDES 110 <150 mg/dL [facility] LDL (CALCULATED) 52 mg/dL (calc) [facility] Comment: Reference range: <100 Desirable range <100 mg/dL for primary prevention; <70 mg/dL for patients with CHD or diabetic patients with > or = 2 CHD risk factors. LDL-C is now calculated using the Aj-Diana calculation, which is a validated novel method providing better accuracy than the Friedewald equation in the estimation of LDL-C. Aj IBARRA et al. CHELO. 2013;310(19): 0982-1063 (http://education.[employer]ide[employer]STAT-Diagnostica/faq/KKS740) CHOL/HDL RATIO 3.2 <5.0 (calc) [facility] NON HDL CHOLESTEROL 72 <130 mg/dL (calc) [facility] Comment: For patients with diabetes plus 1 major ASCVD risk factor, treating to a non-HDL-C goal of <100 mg/dL (LDL-C of <70 mg/dL) is considered a therapeutic option. 03/07/2023 7:29 AM CDT 03/07/2023 7:30 AM CDT Narrative [facility] - 03/08/2023 3:51 AM CDT FASTING:YES FASTING: YES Resulting Agency Comment Performing Organization Information: Site ID: [id number] Name: [facility] Address: [address] [address] Director: Nirali Parekh MD Anastasia Lawson DO LABORATORY Final Result Performing Organization Address [facility] Co de Phone Number [facility] [place] [address] [address], * HEPATITIS C ANTIBODY W/RFX TO HCV RNA (06/19/2022 7:04 AM CDT) HEPATITIS C AB NON-REACTI VE NON-REACT DIVYA [facility] SIGNAL TO CUTOFF 0.02 <[address] [facility] Comment: HCV antibody was non-reactive. There is no laboratory evidence of HCV infection. In most cases, no further action is required. However, if recent HCV exposure is suspected, a test for HCV RNA (test code 27458) is suggested. For additional information please refer to http://education.Hoseanna/faq/WYR62k1 (This link is being provided for informational/ educational purposes only.) 06/19/2022 7:04 AM CDT 06/19/2022 7:06 AM CDT Narrative [facility] [place] - 06/20/2022 10:00 AM CDT FASTING:YES FASTING: YES Yuri Granda DO LABORATORY Final Result Performing Organization Address [facility] Co de Phone Number [facility] [address] [address] from Last 3 Months or Most Recently Relevant to Health Maintenance Insurance Care Teams Agricultural Agent Relationship Specialty Start Date End Date Anastasia Lawson DO [address] [place] [address] PCP - General FAMILY PRACTICE 09/23/22
== END 2024-12-07 13:07 | disposition home or self-care (01) ==
PROVIDERS: Visit Provider Nurse Practitioner Family
DX: N93.9 Abnormal uterine and vaginal bleeding, unspecified (principal)
CPT/HCPCS: 76830; 76856

== ENCOUNTER 2025-01-13 06:43 | Outpatient (CLI) | payer OTHER, SELFPAY ==
--- OUTSIDE RECORDS SUMMARY | 2025-01-13 06:47 | XMS_ITS ---
Author Organization [facility] Address [address] [place] [address] Care Team Providers Care Tennis Court Attendant Name Role Phone Dr. Clark Chadwick Primary Care Provider [phone] PrelutYuri borrego Unavailable [phone] REASON FOR VISIT RE:Testosterone Medications Medication SIG (Take, Route, Frequency, Duration) Notes Start Date End Date Status Testosterone Cypionate 200 MG/ML 0.5 mL Intramuscular weekly for 28 days 12/21/2024 Active Social History Sex Assigned At : Social History Observation Description Sex Assigned At Female Encounters Encounter Location Date Provider Diagnosis [address] [address] 12/21/2024 Clark Chadwick Gender dysphoria F64.9 Assessments Encounter Date Diagnosis (ICD Code) Assessment Notes Treatment Notes Treatment Clinical Notes Section Notes 12/21/2024 Gender dysphoria (ICD-10 - F64.9) Plan Of Treatment Medication Medication Name Sig Start Date Stop Date Notes Testosterone Cypionate 200 MG/ML 0.5 mL Intramuscular weekly for 28 days 12/21/2024 Next Appt Details Provider Name:Clark carreon, 03/21/2025 02:30:00 PM, [address] [place] [address], [phone], Progress Notes * Mabel GONZALEZDOB:1990 ( 34 yo F)Acc No.[id number]:12/21/2024 Patient: Mabel DIXON :1990 A ge:34 Y S ex:Female Address:[address] [place] [address], [place] [address] * Refills Refill Testosterone Cypionate Solution, 200 MG/ML, Intramuscular, 4 milliliter, 0.5 mL, weekly, 28 days, Refills=5 * true * Date: Generated for Nik trujillo/Dora/Marleni on: 0 01/13/2025 06:47 AM CDT
--- OUTSIDE RECORDS SUMMARY | 2025-01-13 06:48 | XMS_ITS | Encounter Summary ---
Author Organization [facility] Address [address] [place] [address] Care Team Providers Care Dobby Looms Pegger Name Role Phone Anastasia Lawson DO Primary Care Provider [phone] Encounter Details Date Type Department Care Team (Late st Contact Info) Description 03/12/2024 Functional Neuromodulation Message Enc [facility] Medical Group Multispecialty Care - [facility] [address] [facility], [address] [place] [address] [facility] Provider Canceled appt. 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
--- OUTSIDE RECORDS SUMMARY | 2025-01-13 06:48 | XMS_ITS | Encounter Summary ---
Author Organization [facility] Address [facility] [place] [address] Care Team Providers Care Science Teacher Name Role Phone Ansatasia Lawson DO Primary Care Provider [phone] Encounter Details Date Type Department Care Team (Late st Contact Info) Description 06/10/2024 Circle Plus Payments Message Enc [facility] Medical Group Family Medicine [address], [address] [place] [phone] Anastasia Lawson DO [address] [place], [place] [phone] pap smear Social History Tobacco Use Types [...] Depression Total Score: 14 023 7:55 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
--- OUTSIDE RECORDS SUMMARY | 2025-01-13 06:48 | XMS_ITS ---
Author Organization [facility] Address [address] [place] [address] Care Team Providers Care Pulverizing And Sifting Operator Name Role Phone Dr. Clark Chadwick Primary Care Provider PrelutskYuri serna Unavailable [phone] REASON FOR VISIT RE:RE:A1C improved! Social History Sex Assigned At : Social History Observation Description Sex Assigned At Female Encounters Encounter Location Date Provider Diagnosis [facility] [address] [place] [phone] 12/21/2024 Clark Chadwick Plan Of Treatment Next Appt Details Provider Name:Clark carreon, 03/21/2025 02:30:00 PM, [facility] [place], [address], Progress Notes * Mabel GONZALEZDOB:1990 ( 34 yo F)Acc No.[id number]:12/21/2024 Patient: Mabel DIXON :1990 A ge:34 Y S ex:Female Address:[address] [place] [address] , [place] [address] * true * Date: Generated for Printi ng/Faxing/eTransmitting on: 0 01/13/2025 06:48 AM CDT
--- OUTSIDE RECORDS SUMMARY | 2025-01-13 06:48 | XMS_ITS | Encounter Summary ---
Author Organization [facility] Address [facility] [place] [address] Care Team Providers Care Payroll Clerk Name Role Phone Anastasia Lawson DO Primary Care Provider [phone] Encounter Details Date Type Department Care Team (Late st Contact Info) Description 08/20/2023 Biba Message Enc [facility] Medical Group Family Medicine [address], [address] [place] [address] Pete, [facility] Provider FMLA Social History Tobacco Use [...] Depression Total Score: 14 023 7:55 AM CLOSER ON documented as of this encounter Care Teams Payroll Clerk Relationship Specialty Start Date End Date Anastasia Lawson DO [address] [place] [address] PCP - General FAMILY PRACTICE 1/9/23 documented as of this encounter
--- OUTSIDE RECORDS SUMMARY | 2025-01-13 06:48 | XMS_ITS | Patient Health Record ---
Author Organization [facility] Address [address] [place] [address] Care Team Providers Care Snubber Name Role Phone Dr. Clark Chadwick Primary Care Provider [phone] PrelutskYuri serna Unavailable [phone] Allergies No Known Allergies Results Component Value Reference Range Notes Testosterone, Serum Reviewed date:12/21/2024 08:24:02 AM Interpretation: Performing Lab:[facility], [facility], Phone - [phone], Director - Mirlande Notes/Report: Testosterone 859 8-60 ng/dL CBC With Differential/Platel et Reviewed date:09/22/2024 08:37:23 AM Interpretation: Performing Lab:[facility], [facility], Phone - [phone], Director - Mirlande Notes/Report: WBC 10.5 3.4-10.8 x10E3/uL RBC 5.30 [...] Basos 1 Not Estab. % Immature Cells SENIOR RADIATION PROTECTION TECHNICIAN Neutrophils (Absolute) 6.6 1.4-7.0 x10E3/uL Lymphs (Absolute) 3.3 0.7-3.1 x10E3/uL Monocytes(Absolute) 0.4 0.1-0.9 x10E3/uL Eos (Absolute) 0.2 0.0-0.4 x10E3/uL Baso (Absolute) 0.1 0.0-0.2 x10E3/uL Immature Granulocytes 0 Not Estab. % Immature Grans (Abs) 0.0 0.0-0.1 x10E3/uL NRBC SENIOR RADIATION PROTECTION TECHNICIAN Hematology Comments: SENIOR RADIATION PROTECTION TECHNICIAN Testosterone, Total, LC/MS Reviewed date:09/30/2024 07:21:43 PM Interpretation: Performing Lab:[facility], [address] [facility], Phone - [phone], Director - [facility] Notes/Report: Testosterone, Total, LC/MS 226 This test was developed and its performance characteristics determined by [facility]. It has not been cleared or approved by the Food and Drug Administration. Reference Range: Adult Females Premenopausal 10 - 55 Postmenopausal 7 - 40 Comp. Metabolic Panel (14) Reviewed date:09/22/2024 08:37:23 AM Interpretation: Performing Lab:[facility] [place], [address] [facility], Phone - [phone], Director - Mirlande Notes/Report: Glucose 122 70-99 [...] 0-40 IU/L ALT (SGPT) 26 0-32 IU/L Hemoglobin A1C Reviewed date:09/21/2024 04:25:31 PM Interpretation: Performing Lab: Notes/Report: HbA1c 7.4 Hemoglobin A1C Reviewed date:06/17/2024 04:11:26 PM Interpretation: Performing Lab: Notes/Report: HbA1c 6.9 Comp. Metabolic Panel (14) Reviewed date:06/18/2024 08:14:37 PM Interpretation: Performing Lab:[facility], [address] [facility], Phone - [phone], Director - Mirlande Notes/Report: Clinical Information:SRC: SRC: Glucose 105 70-99 mg/dL BUN 8 6-20 [...] 0-40 IU/L ALT (SGPT) 25 0-32 IU/L Ct/GC LUIS CARLOS, Pharyngeal Reviewed date:06/18/2024 08:14:37 PM Interpretation: Performing Lab:[facility], [address] [place] [address], Phone - [phone], Director - Shaji Notes/Report: Clinical Information:SRC: SRC: C. trachomatis, LUIS CARLOS, Pharyn Negative Negative N. gonorrhoeae, LUIS CARLOS, Pharyn Negative Negative Chlamydia/GC Amplification Reviewed date:06/20/2024 08:30:45 PM Interpretation: Performing Lab:[facility], [address] [place] [address], Phone - [phone], Director - Shaji Notes/Report: Clinical Information:SRC: SRC: Chlamydia trachomatis, LUIS CARLOS Negative Negative Neisseria gonorrhoeae, LUIS CARLOS Negative Negative HIV 1/2 Antibody Panel 05088 5 Reviewed date:06/18/2024 08:14:37 PM Interpretation: Performing Lab:[facility] [place], [address] [place] [address], Phone - [phone], [facility] Notes/Report: Clinical Information:SRC: SRC: HIV Ab/p24 Ag Screen Non Reactive Non Reactive HIV-1/HIV-2 antibodies and HIV-1 p24 antigen were NOT detected. There is no laboratory evidence of HIV infection. HIV Negative Testosterone, Total, LC/MS Reviewed date:07/05/2024 08:03:59 AM Interpretation: Performing Lab:[facility], [address] [facility], Phone - [phone], Director - [facility] Notes/Report: Clinical Information:SRC: SRC: Testosterone, Total, LC/MS 410 This test was developed and its performance characteristics determined by [employer]. It has not been cleared or approved by the Food and Drug Administration. Reference Range: Adult Females Premenopausal 10 - 55 Postmenopausal 7 - 40 RPR Reviewed date:06/18/2024 08:14:37 PM Interpretation: Performing Lab:[facility] [place], [address] [place] [address], Phone - [phone], Director - [facility] Notes/Report: Clinical Information:SRC: SRC: RPR Non Reactive Non Reactive CBC With Differential/Platel et Reviewed date:06/18/2024 08:14:37 PM Interpretation: Performing Lab:[facility] [place], [address] [place] [address], Phone - [phone], [facility] Notes/Report: Clinical Information:SRC: SRC: WBC 11.2 3.4-10.8 x10E3/uL RBC 5.33 3.77-5.28 x10E6/uL Hemoglobin 14.9 11.1-15.9 g/dL Hematocrit 46.1 34.0-46.6 % MCV 87 79-97 fL MCH 28.0 26.6-33.0 pg MCHC 32.3 31.5-35.7 g/dL RDW 13.8 11.7-15.4 % Platelets 336 150-450 x10E3/uL Neutrophils 70 Not Estab. % Lymphs 26 Not Estab. % Monocytes 3 Not Estab. % Eos 1 Not Estab. % Basos 0 Not Estab. % Immature Cells SENIOR RADIATION PROTECTION TECHNICIAN Neutrophils (Absolute) 7.7 1.4-7.0 x10E3/uL Lymphs (Absolute) 2.9 0.7-3.1 x10E3/uL Monocytes(Absolute) 0.4 0.1-0.9 x10E3/uL Eos (Absolute) 0.1 0.0-0.4 x10E3/uL Baso (Absolute) 0.1 0.0-0.2 x10E3/uL Immature Granulocytes 0 Not Estab. % Immature Grans (Abs) 0.0 0.0-0.1 x10E3/uL NRBC SENIOR RADIATION PROTECTION TECHNICIAN Hematology Comments: SENIOR RADIATION PROTECTION TECHNICIAN CBC With Differential/Platel et Reviewed date:03/21/2024 05:33:48 PM Interpretation: Performing Lab:[facility] [place], [address] [facility], [place], Phone - [phone], Director - Mirlande Notes/Report: WBC 9.8 3.4-10.8 [...] Basos 1 Not Estab. % Immature Cells SENIOR RADIATION PROTECTION TECHNICIAN Neutrophils (Absolute) 5.9 1.4-7.0 x10E3/uL Lymphs (Absolute) 3.3 0.7-3.1 x10E3/uL Monocytes(Absolute) 0.4 0.1-0.9 x10E3/uL Eos (Absolute) 0.1 0.0-0.4 x10E3/uL Baso (Absolute) 0.1 0.0-0.2 x10E3/uL Immature Granulocytes 0 Not Estab. % Immature Grans (Abs) 0.0 0.0-0.1 x10E3/uL NRBC SENIOR RADIATION PROTECTION TECHNICIAN Hematology Comments: SENIOR RADIATION PROTECTION TECHNICIAN Comp. Metabolic Panel (14) Reviewed date:03/21/2024 05:33:48 PM Interpretation: Performing Lab:[facility] [place], [address] [facility], Phone - [phone], Director - Mirlande Notes/Report: Glucose 106 70-99 [...] 0-40 IU/L ALT (SGPT) 27 0-32 IU/L Hemoglobin A1C Reviewed date:03/17/2024 03:40:43 PM Interpretation: Performing Lab: Notes/Report: HbA1c 6.6 CBC With Differential/Platel et Reviewed date:12/21/2024 08:24:02 AM Interpretation: Performing Lab:[facility] [place], [address] [facility], Phone - [phone], [facility] Notes/Report: WBC 9.0 3.4-10.8 x10E3/uL RBC 5.61 3.77-5.28 x10E6/uL Hemoglobin 15.5 11.1-15.9 g/dL Hematocrit 47.8 34.0-46.6 % MCV 85 79-97 fL MCH 27.6 26.6-33.0 pg MCHC 32.4 31.5-35.7 g/dL RDW 13.9 11.7-15.4 % Platelets 301 150-450 x10E3/uL Neutrophils 55 Not Estab. % Lymphs 36 Not Estab. % Monocytes 5 Not Estab. % Eos 3 Not Estab. % Basos 1 Not Estab. % Immature Cells SENIOR RADIATION PROTECTION TECHNICIAN Neutrophils (Absolute) 5.0 1.4-7.0 x10E3/uL Lymphs (Absolute) 3.2 0.7-3.1 x10E3/uL Monocytes(Absolute) 0.5 0.1-0.9 x10E3/uL Eos (Absolute) 0.3 0.0-0.4 x10E3/uL Baso (Absolute) 0.1 0.0-0.2 x10E3/uL Immature Granulocytes 0 Not Estab. % Immature Grans (Abs) 0.0 0.0-0.1 x10E3/uL NRBC SENIOR RADIATION PROTECTION TECHNICIAN Hematology Comments: SENIOR RADIATION PROTECTION TECHNICIAN Comp. Metabolic Panel (14) Reviewed date:12/21/2024 08:24:02 AM Interpretation: Performing Lab:[facility] [place], [address] [facility], [place], Phone - [phone], Director - Mirlande Notes/Report: Glucose 102 70-99 mg/dL BUN 12 6-20 mg/dL Creatinine 0.76 0.57-1.00 mg/dL eGFR 105 >59 mL/min/1.73 BUN/Creatinine Ratio 16 9-23 Sodium 140 134-144 mmol/L Potassium 4.3 3.5-5.2 mmol/L Chloride 104 96-106 mmol/L Carbon Dioxide, Total 19 20-29 mmol/L Calcium 10.2 8.7-10.2 mg/dL Protein, Total 7.5 6.0-8.5 g/dL Albumin 4.9 3.9-4.9 g/dL Globulin, Total 2.6 1.5-4.5 g/dL Bilirubin, Total <0.2 0.0-1.2 mg/dL Alkaline Phosphatase 76 44-121 IU/L AST (SGOT) 15 0-40 IU/L ALT (SGPT) 18 0-32 IU/L Hemoglobin A1C Reviewed date:12/20/2024 04:08:36 PM Interpretation: Performing Lab: Notes/Report: HbA1c 6.2 Reason For Referral Reason Migraines, refractor y to multiple medical therapies Diagnosis 1 Chronic migraine w/o aura w/o status migrainosus, not intractable (G43.709) Referral Organization [facility] Referring Provider First Name Clark Referring Provider Last Name Netta Referring Provider Speciality Internal M edicine Referred Provider Specialty Neurology General Notes Teresa Pollack 02/10/20 24 06:14:00 AM > sent o [facility] Referral Priority Routine Reason ADHD evaluation Diagnosis 1 Concentration defici t (R41.840) Referral Organization [facility] Referring Provider First Name Clark Referring Provider Last Name Ramseyjavier Referring Provider Speciality Internal M edicine Referred Provider Specialty Psychologist General Notes Teresa Pollack 09/25/19 10:55:20 AM > sent to [facility] Referral Priority Routine Medications Medication SIG (Take, Route, Frequency, Duration) Notes Start Date End Date Status Ubrelvy 100 MG 1 tablet may take se cond dose at least 2 hours after first dose as needed Orally Once a day Active Sertraline HCl 50 MG TAKE 1 TABLET BY MO UTH EVERY DAY for 90 Active metFORMIN HCl 1000 MG TAKE 1 TABLET BY M OUTH TWICE DAILY WITH A MEAL for 90 Active Fioricet 50-300-40 MG 2 capsule as neede d Orally every day for 30 days Active Atorvastatin Calcium 20 MG 1 tablet Orally Once a day for 90 days 06/18/2023 Active Ondansetron 4 MG 1 tablet on the tong ue and allow to dissolve Orally Once a day Active Nortriptyline HCl 25 MG 1 capsule at [facility] Orally Once a day for 30 days 01/08/2024 Active Meloxicam 15 MG TAKE 1 TABLET BY CHERYL TH EVERY DAY for 30 Active Multivitamin Active Cetirizine HCl 10 MG 1 tablet Orally Onc e a day 06/18/2023 Active Propranolol HCl 10 MG 1 tablet Orally On ce a day Active Slynd 4 MG 1 tablet Orally Once a day Active Albuterol Sulfate HFA 108 (90 Base) mcg/act 2 puffs as needed Inhalation every 4 hrs Active metFORMIN HCl 1000 MG 1 tablet with a me al Orally Twice a day Active Aimovig 70 MG/ML as directed Subcutan eous monthly Active Sertraline HCl 50 MG 1.5 tablet Orally O nce a day for 90 days Active Ozempic (0.25 or 0.5 MG/DOSE) 2 MG/3ML 0.25mg Subcutaneous weekly Active Finasteride 5 MG 1 tablet Orally Once a day for 30 days Active Finasteride 5 MG TAKE 1 TABLET BY CHERYL TH EVERY DAY for 30 Active Ketoconazole 2 % 1 application [employer] Alarm Superintendent ally Once a day for 30 days 12/20/2024 02/18/2025 Active Farxiga 10 MG 1 tablet Orally Once a day 09/22/2024 Active Testosterone Cypionate 200 MG/ML 0.5 mL Intramuscular weekly for 28 days 12/21/2024 Active Needle (Disp) 18G X 1-1/2 as directed to draw up medication as directed for 90 days Active Syringe (Disposable) 1 ML as directed In jected weekly for 90 days Active Needle (Disp) 23G X 1-1/4 as directed to inject medication as directed for 90 days Active Immunizations Vaccine Route [...] Problem Status W/U Status Risk Notes Problem 746070270 Type 2 diabetes mellitus without complication, without long-term current use of insulin (E11.9) Active confirmed Problem Gender dysphoria (80814121) Gender dysphoria (F64.9) Active confirmed Problem 43139444 Anxiety (F41.9) Active confirmed Problem 30836436 SESAR (obstructive sleep apnea) (G47.33) Active confirmed Problem 963803068 MDD (major depressive disorder), recurrent episode, moderate (F33.1) Active confirmed Problem 722765391 Asthma, mild intermittent, well-controlled (J45.20) Active confirmed Problem 98417640 Concentration deficit (R41.840) Active confirmed Problem 593837252 Chronic migraine w/o aura w/o status migrainosus, not intractable (G43.709) Active confirmed Problem Endometrial hyperplasia without atypia (34996702865832 8) Endometrial hyperplasia without atypia (N85.00) Active confirmed Vital Signs Heart Rate 92 /min 12/20/2024 Temperature 97.9 degrees Fahrenheit 12/20/2024 Respiratory Rate 14 /min 09/21/2024 Blood pressure diastolic 78 mm Hg 09/21/2024 Oximetry 98 % 12/20/2024 Height 62.2 in 12/20/2024 Blood pressure systolic 122 mm Hg 09/21/2024 Weight 223.0 lbs 12/20/2024 BMI 40.52 kg/m2 12/20/2024 Procedures Procedure Date Ordered Date Performed Result Body Sit e EAR IRRIGATION - Bilateral 03/17/2024 N/A Encounters Encounter Location Date Provider Diagnosis [address] [address] 03/17/2024 Clark Tochtrop Chronic migraine w/o aura [...] left shoulder M25.512 and Cerumen impaction H61.[address] [address] 06/17/2024 Clark Tochtrop Chronic migraine w/o aura [...] High risk sexual behavior, unspecified type Z72.[address] [address] 07/22/2024 Clark Tochtrop Finger pain, right M79.[address] [address] 09/21/2024 Clark Tochtrop Chronic migraine w/o aura w/o [...] unspecified type Z72.51 and Concentration deficit R41.[address] [address] 12/20/2024 [facility] Chronic migraine w/o aura w/o status [...] High risk sexual behavior, unspecified type Z72.51 ; Concentration deficit R41.840 and Intertrigo L30.[address] [address] 07/05/2024 [facility], [address] [address] 09/22/2024 [place] [address] [place] [address] 09/30/2024 [facility] Gender dysphoria F64.[address] [address] 12/21/2024 [facility], [address] [address] 01/28/2024 [facility], [address] [address] 02/06/2024 [facility] [address] [place] [address] 03/23/2024 [facility] [address] [place] [address] 04/02/2024 [facility] [address] [place] [address] 04/02/2024 [facility] Gender dysphoria F64.9 [facility] [address] [place] [address] 06/24/2024 [facility] Gender dysphoria F64.9 [facility] [address] [place] [address] 07/05/2024 [facility] Gender dysphoria F64.9 [facility] [address] [place] [address] 07/17/2024 [facility] [address] [place] [address] 09/22/2024 [facility] [address] [place] [address] 09/30/2024 [facility] [address] [place] [address] 11/03/2024 [facility] [address] [place] [address] 11/15/2024 [facility] [address] [place] [address] 11/16/2024 [facility] [address] [place] [address] 12/21/2024 [facility] [address] [place] [address] 12/21/2024 [facility] [address] [place] [address] 12/21/2024 [facility] [address] [place] [address] 12/21/2024 Calrk Chadwick Gender dysphoria F64.9 Assessments Encounter Date Diagnosis (ICD Code) Assessment Notes Treatment Notes Treatment Clinical Notes Section Notes 03/17/2024 Chronic migraine w/o aura w/o status [...] G43.709) 09/30/2024 Gender dysphoria (ICD-10 - F64.9) 12/20/2024 Type 2 diabetes mellitus without complication, without long-term current use of insulin (ICD-10 - E11.9) 12/20/2024 Chronic migraine w/o aura w/o status migrainosus, not intractable (ICD-10 - G43.709) 12/21/2024 Gender dysphoria (ICD-10 - F64.9) 12/20/2024 Anxiety (ICD-10 - F41.9) 09/21/2024 Anxiety (ICD-10 - F41.9) 06/17/2024 Type 2 diabetes mellitus without complication, without long-term current use of insulin (ICD-10 - E11.9) 03/17/2024 Type 2 diabetes mellitus without complication, without long-term current use of insulin (ICD-10 - E11.9) 03/17/2024 Anxiety (ICD-10 - F41.9) 06/17/2024 Anxiety (ICD-10 - F41.9) 09/21/2024 MDD (major depressive disorder), recurrent episode, moderate (ICD-10 - F33.1) 12/20/2024 MDD (major depressive disorder), recurrent episode, moderate (ICD-10 - F33.1) 12/20/2024 Asthma, mild intermittent, well-controlled (ICD-10 - J45.20) 09/21/2024 Asthma, mild intermittent, well-controlled (ICD-10 - J45.20) 06/17/2024 MDD (major depressive disorder), recurrent episode, moderate (ICD-10 - F33.1) 03/17/2024 MDD (major depressive disorder), recurrent episode, moderate (ICD-10 - F33.1) 03/17/2024 Asthma, mild intermittent, well-controlled (ICD-10 - J45.20) 09/21/2024 SESAR (obstructive sleep apnea) (ICD-10 - G47.33) 12/20/2024 SESAR (obstructive sleep apnea) (ICD-10 - G47.33) 06/17/2024 Asthma, mild intermittent, well-controlled (ICD-10 - J45.20) 12/20/2024 Endometrial hyperplasia without atypia (ICD-10 - N85.00) 09/21/2024 Endometrial hyperplasia without atypia (ICD-10 - N85.00) 03/17/2024 SESAR (obstructive sleep apnea) (ICD-10 - G47.33) 06/17/2024 SESAR (obstructive sleep apnea) (ICD-10 - G47.33) 03/17/2024 Endometrial hyperplasia without atypia (ICD-10 - N85.00) 06/17/2024 Endometrial hyperplasia without atypia (ICD-10 - N85.00) 09/21/2024 Micturition syncope (ICD-10 - R55) 12/20/2024 Micturition syncope (ICD-10 - R55) 12/20/2024 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 Will be scanned into the chart 12/20/2024 Acute pain of left shoulder (ICD-10 - M25.512) 09/21/2024 Acute pain of left shoulder (ICD-10 - M25.512) 03/17/2024 Gender dysphoria (ICD-10 - F64.9) Informed consent reviewed and signed at today's appointment. Will be scanned into the chart 06/17/2024 Gender dysphoria (ICD-10 - F64.9) Informed consent reviewed and signed at today's appointment. Will be scanned into the chart 06/17/2024 Acute pain of left shoulder (ICD-10 - M25.512) 03/17/2024 Acute pain of left shoulder (ICD-10 - M25.512) 09/21/2024 Cerumen impaction (ICD-10 - H61.20) 12/20/2024 Cerumen impaction (ICD-10 - H61.20) 09/21/2024 High risk sexual behavior, unspecified type (ICD-10 - Z72.51) 12/20/2024 High risk sexual behavior, unspecified type (ICD-10 - Z72.51) 03/17/2024 Cerumen impaction (ICD-10 - H61.20) 06/17/2024 Cerumen impaction (ICD-10 - H61.20) 06/17/2024 High risk sexual behavior, unspecified type (ICD-10 - Z72.51) 12/20/2024 Concentration deficit (ICD-10 - R41.840) 09/21/2024 Concentration deficit (ICD-10 - R41.840) 12/20/2024 Intertrigo (ICD-10 - L30.4) Plan Of Treatment Pending Test Test Name Order Date EAR IRRIGATION - Bilateral 12/18/2023 EAR IRRIGATION - Bilateral 03/17/2024 Next Appt Details Provider Name:Clark Brown velma, 03/21/2025 02:30:00 PM, [address] [place], [address], Insurance Providers Payer Name Payer Address Payer Phone Subscriber Number Group Number Insured Name Patient Relationship to Insured Coverage Start Date Coverage End Date [facility] [address] [place] [phone] [id number] Mabel Gonzalez Self - patient is the [...]
--- OUTSIDE RECORDS SUMMARY | 2025-01-13 06:48 | XMS_ITS | Encounter Summary ---
Author Organization [facility] Address [address] [place] [address] Care Team Providers Care Adjunct Faculty Mathematics Department Name Role Phone Anastasia Lawson DO Primary Care Provider [phone] Encounter Details Date Type Department Care Team (Late st Contact Info) Description 05/28/2023 [employer] 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
--- OUTSIDE RECORDS SUMMARY | 2025-01-13 06:48 | XMS_ITS ---
Author Organization [facility] Address [address] [place] [address] Care Team Providers Care Devops Developer Name Role Phone Dr. Clark Chadwick Primary Care Provider PrelutskYuri serna Unavailable [phone] REASON FOR VISIT Testosterone Social History Sex Assigned At : Social History Observation Description Sex Assigned At Female Encounters Encounter Location Date Provider Diagnosis [address] [address] 12/21/2024 Clark Chadwick Plan Of Treatment Next Appt Details Provider Name:Clark carreon, 03/21/2025 02:30:00 PM, [address] [place] [address], [phone], Progress Notes * Mabel WEBSTERDOB:1990 ( 34 yo F)Acc No.[id number]:12/21/2024 Patient: Mabel DIXON :1990 A ge:34 Y S ex:Female Address:[address] [place] [address] , [place] [address] * true * Date: Generated for Nik trujillo/Dora/eTransmitting on: 0 01/13/2025 06:47 AM CDT
--- OUTSIDE RECORDS SUMMARY | 2025-01-13 06:48 | XMS_ITS | Clinical Summary ---
Author Organization [facility] Address [address] [place] [address] Care Team Providers Care Food Checkers And Cashiers Supervisor Name Role Phone Unavailable Primary Care Provider Unavailabl e Source Comments [facility],non-owned Affiliates and Associated Physician Practices is amultiple site organization consisting of ambulatory clinics and hospital sitesin [place], [place], [place] and [place]. This disclosure is being madepursuant to the Care Everywhere program and may not contain all information available regarding this patient. Last updated 18.[facility] Social History Tobacco Use Types Packs/Day Years Used Date Smoking Tobacco: Never Assessed Comments Unknown Sex and Gender Information Value Date Recorded Sex Assigned at Not on file Legal Sex Female 2:16 PM CDT Gender Identity Not on file Sexual Orientation Not on file Plan of Treatment Health Maintenance Due Date Last Done Comments PAP SMEAR 1990 HIV SCREENING 2005 HEPATITIS C SCREENING 01/26/2008 DTAP/TDAP/TD VACCINES (1 - Tdap) 2009 HEPATITIS B VACCINE (1 of 3 - 19+ 3-dose series) 2009 COVID-19 VACCINE ( - 2023-2 5 season) 2024 DEPRESSION SCREENING 09/15/2024 INFLUENZA VACCINE (Season Ended) 2025 ZOSTER VACCINE (1 of 2) 01/31/2040 HIB [...]
--- OUTSIDE RECORDS SUMMARY | 2025-01-13 06:48 | XMS_ITS | Clinical Summary ---
Author Organization [facility] Address [facility] [place] [address] Care Team Providers Care Location Manager Name Role Phone Anastasia Lawson DO Primary Care Provider [phone] Allergies Active Allergy Reactions Criticality Noted Date [...] 1 06/27/20 Active B-D 3CC LUER-HARRISON SYR 06TK0-0/2 23G X 1-/2 3 ML Misc USE [...] hyperglycemia, without long-term current use of insulin (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, complex 12/03/2019 Chronic migraine without aur a without status migrainosus, not intractable 07/04/2011 Immunizations Immunization Administration Dates Next Due Influenza (Generic) 06/13/2021 Influenza Adult (Generic) 06/29/2022 MODERNA COVID-19 (ARC WELDER APPRENTICE JEFFREY MICHELLE), MRNA, LNP-S, PF, 50 MCG/ [...] Comments Blood Pressure 116/82 11/18/2023 1:42 PM INSPECTOR MACHINED PARTS Pulse 93 11/18/2023 1:42 PM INSPECTOR MACHINED PARTS Temperature 37.2 C (99 F) 11/18/2023 1:42 PM INSPECTOR MACHINED PARTS Respiratory Rate 17 07/15/2023 11:03 AM CDT Oxygen Saturation 97% 11/18/2023 1:42 PM INSPECTOR MACHINED PARTS Inhaled Oxygen Concentration - - Weight 104.3 kg (230 lb) 11/18/2023 1:42 PM INSPECTOR MACHINED PARTS Height 157.5 cm (5' 2 ) 11/18/2023 1:42 PM INSPECTOR MACHINED PARTS Body Mass Index 42.07 11/18/2023 1:42 PM INSPECTOR MACHINED PARTS Plan of Treatment Health Maintenance Due Date [...] 5 Years) and At-Risk Patients (6 to 49 Years) (2 of 2 - PCV) 07/17/2023 07/17/2022 Hemoglobin A1C 09/06/2023 03/07/2023, 10/14/2022, 07/02/2022 Lipid Panel 03/07/2024 03/07/2023, 06/19/2022 COVID-19 Vaccine (2023- 5 season) 2024 01/19/2022, 01/05/2021, 12/15/2020 PHQ-2 (Physician [place]) 09/15/2024 11/18/2023 DTaP, Tdap and Td Vaccines [...] A1C 6.0(H) <5.7 % of total Hgb [place] Comment: For someone without known diabetes, [...] AM CDT 03/07/2023 7:30 AM CDT Narrative [facility] - 03/08/2023 3:51 AM CDT FASTING:YES FASTING: YES Resulting Agency Comment Performing Organization Information: Site ID: [place] [facility] Address: [address] [place] [address] Director: Nirali Parekh us Anastasia Lulu DO LABORATORY Final Result [facility] [place] [id number] [place] [address] [place] [address], * (ABNORMAL) LIPID PANEL (03/07/2023 7:29 AM CDT) CHOLESTEROL 105 <200 mg/dL [facility] HDL 33(L) > OR = 50 mg/dL [facility] TRIGLYCERIDES 110 <150 mg/dL [facility] LDL (CALCULATED) 52 mg/dL (calc) [facility] Comment: Reference range: <100 Desirable range <100 mg/dL for primary prevention; <70 mg/dL for patients with CHD or diabetic patients with > or = 2 CHD risk factors. LDL-C is now calculated using the Aj-Diana calculation, which is a validated novel method providing better accuracy than the Friedewald equation in the estimation of LDL-C. Aj SS et al. CHELO. 2013;310(19): 8518-2191 (http://education.The Meishijie website.MightyText/faq/LQA543) CHOL/HDL RATIO 3.2 <5.0 (calc) [facility] NON HDL CHOLESTEROL 72 <130 mg/dL (calc) [facility] Comment: For patients with diabetes plus 1 major ASCVD risk factor, treating to a non-HDL-C goal of <100 mg/dL (LDL-C of <70 mg/dL) is considered a therapeutic option. 03/07/2023 7:29 AM CDT 03/07/2023 7:30 AM CDT Narrative [facility] - 03/08/2023 3:51 AM CDT FASTING:YES FASTING: YES Resulting Agency Comment Performing Organization Information: Site ID: [id number] Name: [email or web address] Address: [address] [facility] [place] [address] Director: Nirali Parekh MD Anastasia Lawson DO LABORATORY Final Result Performing Organization Address [facility] Co de Phone Number [facility] [address] [facility], [place] [address] * HEPATITIS C ANTIBODY W/RFX TO HCV RNA (06/19/2022 7:04 AM CDT) HEPATITIS C AB NON-REACTI VE NON-REACT DIVYA [facility] SIGNAL TO CUTOFF 0.02 <[address] [facility] Comment: HCV antibody was non-reactive. There is no laboratory evidence of HCV infection. In most cases, no further action is required. However, if recent HCV exposure is suspected, a test for HCV RNA (test code 81135) is suggested. For additional information please refer to http://education.Watkins Hire/faq/XPQ46d8 (This link is being provided for informational/ educational purposes only.) 06/19/2022 7:04 AM CDT 06/19/2022 7:06 AM CDT Narrative [facility] - 06/20/2022 10:00 AM CDT FASTING:YES FASTING: YES Yuri Granda DO LABORATORY Final Result Performing Organization Address [facility] Co de Phone Number [facility] [address] [place] [address] from Last 3 Months or Most Recently Relevant to Health Maintenance Insurance [facility] Care Teams Location Manager Relationship Specialty Start Date End Date Anastasia Lawson DO [address] [place] [id number] PCP - General FAMILY PRACTICE 09/23/22
--- OUTSIDE RECORDS SUMMARY | 2025-01-13 06:48 | XMS_ITS | Encounter Summary ---
Author Organization [facility] Address [facility] [place] [address] Care Team Providers Care Computational Theory Scientist Name Role Phone Anastasia Lawson DO Primary Care Provider [phone] Encounter Details Date Type Department Care Team (Late st Contact Info) Description 06/11/[address] [facility] Family Medicine [address], [address] [place] [address] Anastasia Lawson DO [address] [place], [place] [phone] Eye exam Social History Tobacco Use Types [...] Depression Total Score: 14 023 7:55 AM AIR QUALITY ENGINEER documented as of this encounter Care Teams Computational Theory Scientist Relationship Specialty Start Date End Date Anastasia Lawson DO [facility] [place] [address] PCP - General FAMILY PRACTICE 09/23/22 documented as of this encounter
--- OUTSIDE RECORDS SUMMARY | 2025-01-13 06:48 | XMS_ITS | Clinical Summary ---
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
[2025-01-13 07:48] LABS: Anion Gap 13 mmol/L (4-12); Blood Urea Nitrogen 16 mg/dL (7-17); Calcium 9.4 mg/dL (8.4-10.2); Carbon Dioxide 24 mmol/L (22-30); Chloride 102 mmol/L (98-107); Estimated Glomerular Filt Rate > 60; Glucose 121 mg/dL (65-110); Potassium 4.2 mmol/L (3.4-5.0); Sodium 139 mmol/L (137-145)
== END 2025-01-13 06:44 | disposition home or self-care (01) ==
PROVIDERS: Visit Provider Anesthesiology
DX: E11.9 Type 2 diabetes mellitus without complications (principal)
CPT/HCPCS: 36415; 80048

== ENCOUNTER 2025-01-19 01:52 | Day surgery (SDC) | payer OTHER, SELFPAY ==
[2025-01-12 11:27] VITALS: BMI 39.2
--- NOTE | 2025-01-12 11:28 | PC.NURSE ---
Report to the Outpatient Waiting Room, entrance under the green pavilion located off [facility], at time _1000_ on date _[phone]_. Planned Procedure Time: _1200_.? Time changes happen often and if your time is changed the preop area will call you the afternoon before. - You and your visitor will be asked to self-screen and do not enter if you have any COVID symptoms. Please call surgeon if you need to reschedule. - A mask is optional within the hospital at this time. Patients may have clear liquids (water, carbonated beverages, clear teas, apple juice) until 3 hours prior to surgery with a maximum of 20 ounces. - No food from midnight until time of surgery and no smoking, or chewing tobacco (or any form of nicotine). No chewing gum, candy or mints. Take only the following medications with a SIP of water on the morning of surgery: __None___ DO NOT STOP ANY OF YOUR OTHER PRESCRIPTION MEDICATIONS PRIOR TO SURGERY EXCEPT THE FOLLOWING Hold all vitamins and supplements for 3 days per anesthesiologist. Medications to discontinue per physician Date to take last dose Please no make-up, nail turkmen, hairspray, perfume, deodorant, or body powder the day of surgery.? No jewelry (including any body piercings) or valuables the day of surgery, leave them at home.? Please take a shower or bath the night before, or the morning of, surgery with an antibacterial soap.? Wear comfortable, loose fitting clothing. - Jewelry must be removed prior to entering the operating room.? Rings and piercings that are not removed may be cut off. - The hospital will not accept responsibility for valuables.? - Please leave all valuables, including medications, at home the day of surgery. If you are going home after surgery, a licensed highway truck driver must drive you home.? - NO public transportation without another adult if you receive anesthesia. - We recommend that an adult stay with you for 24 hours following discharge. - We also recommend that you do not drive, make important decision, drink alcoholic beverages, or take any drugs that were not prescribed by your health care provider for at least 24 hours after your discharge time. Follow any additional instructions given to you from your surgeon. Telephone instructions given to __[place]__and asked if any additional questions and then verbalized understanding. Patient advised to call surgeon office or pre surgery nurse liaison [phone] if any additional questions.
--- OUTSIDE RECORDS SUMMARY | 2025-01-19 01:54 | XMS_ITS | Encounter Summary ---
Author Organization [facility] Address [address] [place] [address] Care Team Providers Care Manager Strategic Partnerships Name Role Phone Anastasia Lawson DO Primary Care Provider [phone] Encounter Details Date Type Department Care Team (Late st Contact Info) Description 05/28/2023 CCS Environmental Message Enc [facility] Multispecialty Care - [facility] [address] [facility], [address] [place] [address] Pete, [facility] Provider FMLA paperwork Social History Tobacco Use [...] Depression Total Score: 14 023 7:55 AM VAMP MAKER documented as of this encounter Care Teams Manager Strategic Partnerships Relationship Specialty Start Date End Date Anastasia Lawson DO [address] [place] [address] PCP - General FAMILY PRACTICE 09/23/22 documented as of this encounter
--- OUTSIDE RECORDS SUMMARY | 2025-01-19 01:54 | XMS_ITS | Patient Health Record ---
Author Organization [facility] Address [address] [place] [address] Care Team Providers Care Construction Technician Name Role Phone Dr. Clark Chadwick Primary Care Provider PrelutskYuri serna Unavailable [phone] Allergies No Known Allergies Results Component Value Reference Range Notes CBC With Differential/Platel et Reviewed date:03/21/2024 05:33:48 PM Interpretation: Performing Lab:[facility], [address], Phone - [phone], Director - PhDRicvolodymyr Notes/Report: WBC 9.8 3.4-10.8 x10E3/uL RBC 4.92 [...] Basos 1 Not Estab. % Immature Cells HOST COORDINATOR Neutrophils (Absolute) 5.9 1.4-7.0 x10E3/uL Lymphs (Absolute) 3.3 0.7-3.1 x10E3/uL Monocytes(Absolute) 0.4 0.1-0.9 x10E3/uL Eos (Absolute) 0.1 0.0-0.4 x10E3/uL Baso (Absolute) 0.1 0.0-0.2 x10E3/uL Immature Granulocytes 0 Not Estab. % Immature Grans (Abs) 0.0 0.0-0.1 x10E3/uL NRBC HOST COORDINATOR Hematology Comments: HOST COORDINATOR Comp. Metabolic Panel (14) Reviewed date:03/21/2024 05:33:48 PM Interpretation: Performing [facility], [address], Phone - [phone], Director - [facility] Notes/Report: Glucose 106 70-99 mg/dL BUN 10 [...] HbA1c 6.6 CBC With Differential/Platel et Reviewed date:09/22/2024 08:37:23 AM Interpretation: Performing Lab:[facility], [address], Phone - [phone], Director - [facility] Notes/Report: WBC 10.5 3.4-10.8 x10E3/uL RBC 5.30 [...] Basos 1 Not Estab. % Immature Cells HOST COORDINATOR Neutrophils (Absolute) 6.6 1.4-7.0 x10E3/uL Lymphs (Absolute) 3.3 0.7-3.1 x10E3/uL Monocytes(Absolute) 0.4 0.1-0.9 x10E3/uL Eos (Absolute) 0.2 0.0-0.4 x10E3/uL Baso (Absolute) 0.1 0.0-0.2 x10E3/uL Immature Granulocytes 0 Not Estab. % Immature Grans (Abs) 0.0 0.0-0.1 x10E3/uL NRBC HOST COORDINATOR Hematology Comments: HOST COORDINATOR Testosterone, Total, LC/MS Reviewed date:09/30/2024 07:21:43 PM Interpretation: Performing Lab:[facility], [address] [place] [address], Phone - [phone], Director - [facility] Notes/Report: Testosterone, Total, LC/MS 226 This test was developed and its performance characteristics determined by [facility]. It has not been cleared or approved by the Food and Drug Administration. Reference Range: Adult Females Premenopausal 10 - 55 Postmenopausal 7 - 40 Comp. Metabolic Panel (14) Reviewed date:09/22/2024 08:37:23 AM Interpretation: Performing Lab:[facility], [address], Phone - [phone], Director - Mirlande Notes/Report: Glucose 122 70-99 [...] PM Interpretation: Performing Lab: Notes/Report: HbA1c 7.4 CBC With Differential/Platel et Reviewed date:06/18/2024 08:14:37 PM Interpretation: Performing Lab:[facility], [address], Phone - [phone], Director - [facility] Notes/Report: Clinical Information:SRC: SRC: WBC 11.2 [...] Basos 0 Not Estab. % Immature Cells HOST COORDINATOR Neutrophils (Absolute) 7.7 1.4-7.0 x10E3/uL Lymphs (Absolute) 2.9 0.7-3.1 x10E3/uL Monocytes(Absolute) 0.4 0.1-0.9 x10E3/uL Eos (Absolute) 0.1 0.0-0.4 x10E3/uL Baso (Absolute) 0.1 0.0-0.2 x10E3/uL Immature Granulocytes 0 Not Estab. % Immature Grans (Abs) 0.0 0.0-0.1 x10E3/uL NRBC HOST COORDINATOR Hematology Comments: HOST COORDINATOR RPR Reviewed date:06/18/2024 08:14:37 PM Interpretation: Performing Lab:[facility], [address], Phone - [phone], Director - Mirlande Notes/Report: Clinical Information:SRC: SRC:TH RPR Non Reactive Non Reactive Testosterone, Total, LC/MS Reviewed date:07/05/2024 08:03:59 AM Interpretation: Performing Lab:[facility], [address] [place] [address], [facility], Phone - [phone], Director - Ashleigh Notes/Report: Clinical Information:SRC: SRC:TH Testosterone, Total, LC/MS 410 This test was developed and its performance characteristics determined by [facility]. It has not been cleared or approved by the Food and Drug Administration. Reference Range: Adult Females Premenopausal 10 - 55 Postmenopausal 7 - 40 HIV 1/2 Antibody Panel 29436 5 Reviewed date:06/18/2024 08:14:37 PM Interpretation: Performing Lab:[facility], Phone - [phone], Director - Mirlande Notes/Report: Clinical Information:SRC: SRC:TH HIV Ab/p24 Ag Screen Non Reactive Non Reactive HIV-1/HIV-2 antibodies and HIV-1 p24 antigen were NOT detected. There is no laboratory evidence of HIV infection. HIV Negative Chlamydia/GC Amplification Reviewed date:06/20/2024 08:30:45 PM Interpretation: Performing Lab:[address], Phone - [phone], Director - Shaji Notes/Report: Clinical Information:SRC: SRC:TH Chlamydia trachomatis, LUIS CARLOS Negative Negative Neisseria gonorrhoeae, LUIS CARLOS Negative Negative Ct/GC LUIS CARLOS, Pharyngeal Reviewed date:06/18/2024 08:14:37 PM Interpretation: Performing Lab:[address], Phone - [phone], Director - Shaji Notes/Report: Clinical Information:SRC: SRC:TH C. trachomatis, LUIS CARLOS, Pharyn Negative Negative N. gonorrhoeae, LUIS CARLOS, Pharyn Negative Negative Comp. Metabolic Panel (14) Reviewed date:06/18/2024 08:14:37 PM Interpretation: Performing Lab:[facility], [address] [place] [address], Phone - [phone], Director - Mirlande Notes/Report: Clinical Information:SRC:UC SRC:TH Glucose 105 70-99 mg/dL BUN 8 [...] 0-40 IU/L ALT (SGPT) 25 0-32 IU/L Hemoglobin A1C Reviewed date:06/17/2024 04:11:26 PM Interpretation: Performing Lab: Notes/Report: HbA1c 6.9 CBC With Differential/Platel et Reviewed date:12/21/2024 08:24:02 AM Interpretation: Performing Lab:[facility], [address], Phone - [phone], Director - [facility] Hospital[facility]yr Notes/Report: WBC 9.0 3.4-10.8 x10E3/uL RBC [...] Basos 1 Not Estab. % Immature Cells HOST COORDINATOR Neutrophils (Absolute) 5.0 1.4-7.0 x10E3/uL Lymphs (Absolute) 3.2 0.7-3.1 x10E3/uL Monocytes(Absolute) 0.5 0.1-0.9 x10E3/uL Eos (Absolute) 0.3 0.0-0.4 x10E3/uL Baso (Absolute) 0.1 0.0-0.2 x10E3/uL Immature Granulocytes 0 Not Estab. % Immature Grans (Abs) 0.0 0.0-0.1 x10E3/uL NRBC HOST COORDINATOR Hematology Comments: HOST COORDINATOR Comp. Metabolic Panel (14) Reviewed date:12/21/2024 08:24:02 AM Interpretation: Performing Lab:[facility], [address], Phone - [phone], Director - [facility] Hospitalcb Notes/Report: Glucose 102 70-99 mg/dL BUN 12 [...] PM Interpretation: Performing Lab: Notes/Report: HbA1c 6.2 Testosterone, Serum Reviewed date:12/21/2024 08:24:02 AM Interpretation: Performing Lab:[facility], [address], Phone - [phone], Director - PhDNew [facility] Deaconess Hospitalcbi Notes/Report: Testosterone 859 8-60 ng/dL Reason For Referral Reason Migraines, refractor y to multiple medical therapies Diagnosis 1 Chronic migraine w/o aura w/o status migrainosus, not intractable (G43.709) Referral Organization [facility] Referring Provider First Name Clark Referring Provider Last Name Netta Referring Provider Speciality Internal M edicine Referred Provider Specialty Neurology General Notes Teresa Pollack 02/10/20 06:14:00 AM > [facility] o [facility] Referral Priority Routine Reason ADHD evaluation Diagnosis 1 Concentration defici t (R41.840) Referral Organization [facility] Referring Provider First Name Clark Referring [...] Nortriptyline HCl 25 MG 1 capsule at [facility] ht Orally Once a day for 30 [...] 30 Active Ketoconazole 2 % 1 application Telemarketing Supervisor ally Once a day for 30 days [...] Problem Status W/U Status Risk Notes Problem 465562329 Type 2 diabetes mellitus without complication, without long-term current use of insulin (E11.9) Active confirmed Problem Gender dysphoria (98095510) Gender dysphoria (F64.9) Active confirmed Problem 13375151 Anxiety (F41.9) Active confirmed Problem 13918182 SESAR (obstructive sleep apnea) (G47.33) Active confirmed Problem 167792815 MDD (major depressive disorder), recurrent episode, moderate (F33.1) Active confirmed Problem 612788720 Asthma, mild intermittent, well-controlled (J45.20) Active confirmed Problem 07411401 Concentration deficit (R41.840) Active confirmed Problem 439779008 Chronic migraine w/o aura w/o status migrainosus, not intractable (G43.709) Active confirmed Problem Endometrial hyperplasia without atypia (86455222702928 8) Endometrial hyperplasia without atypia (N85.00) Active [...] N/A Encounters Encounter Location Date Provider Diagnosis [address] [address] 03/17/2024 Clark Tochtrop Chronic migraine w/o aura [...] left shoulder M25.512 and Cerumen impaction H61.[address] [address] 06/17/2024 Clark Tochtrop Chronic migraine w/o aura [...] High risk sexual behavior, unspecified type Z72.[address] [address] 07/22/2024 Clark Tochtrop Finger pain, right M79.[address] [address] 09/21/2024 Clark Tochtrop Chronic migraine w/o aura [...] unspecified type Z72.51 and Concentration deficit R41.[address] [address] 12/20/2024 [facility] Chronic migraine w/o aura w/o status migrainosus, [...] ; Concentration deficit R41.840 and Intertrigo L30.[address] [address] 07/05/2024 [facility], [address] [address] 09/22/2024 [place] [address] [place] [address] 09/30/2024 [facility] Gender dysphoria F64.[address] [address] 12/21/2024 [facility], [address] [address] 01/28/2024 [facility], [address] [address] 02/06/2024 [facility] [address] [place] [address] 03/23/2024 [facility] [address] [place] [address] 04/02/2024 [facility] [address] [place] [address] 04/02/2024 [facility] Gender dysphoria F64.9 [facility] [address] [place] [address] 06/24/2024 [facility] Gender dysphoria F64.9 [facility] [address] [place] [address] 07/05/2024 [facility] Gender dysphoria F64.9 [facility] [address] [place] [address] 07/17/2024 [facility] [address] [place] [address] 09/22/2024 [facility] [address] [place] [address] 09/30/2024 [facility] [address] [place] [address] 11/03/2024 [facility] [address] [place] [address] 11/15/2024 [facility] [address] [place] [address] 11/16/2024 [facility] [address] [place] [address] 12/21/2024 [facility] [address] [place] [address] 12/21/2024 [facility] [address] [place] [address] 12/21/2024 [facility] [address] [place] [address] 12/21/2024 Clark Chadwick Gender dysphoria F64.9 Assessments [...] Name:Clark Brown velma, 03/21/2025 02:30:00 PM, [address] [place], [address], Insurance Providers Payer Name Payer Address Payer Phone Subscriber Number Group Number Insured Name Patient Relationship to Insured Coverage Start Date Coverage End Date [facility] [address] [place] [phone] [id number] Mabel Gonzalez Self - patient is the [...]
--- OUTSIDE RECORDS SUMMARY | 2025-01-19 01:54 | XMS_ITS ---
Author Organization [facility] Address [address] [place] [address] Care Team Providers Care Appointment Manager Name Role Phone Dr. Clark Chadwick Primary Care Provider PrelutYuri borrego Unavailable [phone] REASON FOR VISIT RE:Testosterone Medications Medication SIG (Take, Route, Frequency, Duration) Notes Start Date End Date Status Testosterone Cypionate 200 MG/ML 0.5 mL Intramuscular weekly for 28 days 12/21/2024 Active Social History Sex Assigned At : Social History Observation Description Sex Assigned At Female Encounters Encounter Location Date Provider Diagnosis [address] [address] 12/21/2024 Clark Chadwick Gender dysphoria F64.9 Assessments Encounter Date Diagnosis (ICD Code) Assessment Notes Treatment Notes Treatment Clinical Notes Section Notes 12/21/2024 Gender dysphoria (ICD-10 - F64.9) Plan Of Treatment Medication Medication Name Sig Start Date Stop Date Notes Testosterone Cypionate 200 MG/ML 0.5 mL Intramuscular weekly for 28 days 12/21/2024 Next Appt Details Provider Name:Clark carreon, 03/21/2025 02:30:00 PM, [address] [place] [address], [address], Progress Notes * Mabel GONZALEZDOB:1990 ( 34 yo F)Acc No.[id number]:12/21/2024 Patient: Mabel DIXON :1990 A ge:34 Y S ex:Female Address:[address] [place] [address], [place] [address] * Refills Refill Testosterone Cypionate Solution, 200 MG/ML, Intramuscular, 4 milliliter, 0.5 mL, weekly, 28 days, Refills=5 * true * Date: Generated for Nik trujillo/Dora/Marleni on: 0 01/19/2025 01:54 AM CDT
--- OUTSIDE RECORDS SUMMARY | 2025-01-19 01:54 | XMS_ITS | Clinical Summary ---
Author Organization [facility] Address [facility] [place] [address] Care Team Providers Care Donor Center Technician Name Role Phone Anastasia Lawson DO Primary Care Provider [phone] Allergies Active Allergy Reactions Criticality Noted Date [...] 1 06/27/20 Active B-D 3CC LUER-HARRISON SYR 59TR0-9/2 23G X 1-/2 3 ML Misc USE [...] hyperglycemia, without long-term current use of insulin ([facility]) 11/18/2022 Mixed hyperlipidemia 11/18/2022 PHILLIP (generalized anxiety disorder) 11/18/2022 Seasonal allergic rhinitis due to pollen 022 Mild intermittent asthma, un specified whether complicated ([facility]) 06/05/2022 Anxiety 06/05/2022 Depressed mood 06/05/2022 Endometrial hyperplasia without atypia, complex 12/03/2019 Chronic migraine without aur a without status migrainosus, not intractable 07/04/2011 Immunizations Immunization Administration Dates Next Due Influenza (Generic) 06/13/2021 Influenza Adult (Generic) 06/29/2022 MODERNA COVID-19 (SCARIFIER OPERATOR JEFFREY MICHELLE), MRNA, LNP-S, PF, 50 MCG/ [...] Comments Blood Pressure 116/82 11/18/2023 1:42 PM DIRECTOR GROUP SALES Pulse 93 11/18/2023 1:42 PM DIRECTOR GROUP SALES Temperature 37.2 C (99 F) 11/18/2023 1:42 PM DIRECTOR GROUP SALES Respiratory Rate 17 07/15/2023 11:03 AM CDT Oxygen Saturation 97% 11/18/2023 1:42 PM DIRECTOR GROUP SALES Inhaled Oxygen Concentration - - Weight 104.3 kg (230 lb) 11/18/2023 1:42 PM DIRECTOR GROUP SALES Height 157.5 cm (5' 2 ) 11/18/2023 1:42 PM DIRECTOR GROUP SALES Body Mass Index 42.07 11/18/2023 1:42 PM DIRECTOR GROUP SALES Plan of Treatment Health Maintenance Due Date [...] season) 2024 01/19/2022, 01/05/2021, 12/15/2020 PHQ-2 (Physician Eyak) 09/15/2024 11/18/2023 DTaP, Tdap and Td Vaccines [...] A1C 6.0(H) <5.7 % of total Hgb [facility], [place] Comment: For someone without known diabetes, [...] AM CDT 03/07/2023 7:30 AM CDT Narrative [facility] - 03/08/2023 3:51 AM CDT FASTING:YES FASTING: YES Resulting Agency Comment Performing Organization Information: Site ID: [id number] Name: [facility] Address: [address] [address] Director: Nirali Parekh us Anastasia Lulu DO LABORATORY Final Result [facility], [place] [id number] [place] [address] [place] [address], * (ABNORMAL) LIPID PANEL (03/07/2023 7:29 AM CDT) CHOLESTEROL 105 <200 mg/dL [facility] HDL 33(L) > OR = 50 mg/dL [facility] TRIGLYCERIDES 110 <150 mg/dL [facility] LDL (CALCULATED) 52 mg/dL (calc) [facility] Comment: Reference range: <100 Desirable range <100 mg/dL for primary prevention; <70 mg/dL for patients with CHD or diabetic patients with > or = 2 CHD risk factors. LDL-C is now calculated using the Aj-Diana calculation, which is a validated novel method providing better accuracy than the Friedewald equation in the estimation of LDL-C. Aj SS et al. CHELO. 2013;310(19): 0517-2800 (http://education.Radiation Monitoring Devices.Bookmytrainings.com/faq/HEE718) CHOL/HDL RATIO 3.2 <5.0 (calc) [facility] NON HDL CHOLESTEROL 72 <130 mg/dL (calc) [facility] Comment: For patients with diabetes plus 1 major ASCVD risk factor, treating to a non-HDL-C goal of <100 mg/dL (LDL-C of <70 mg/dL) is considered a therapeutic option. 03/07/2023 7:29 AM CDT 03/07/2023 7:30 AM CDT Narrative [facility] - 03/08/2023 3:51 AM CDT FASTING:YES FASTING: YES Resulting Agency Comment Performing Organization Information: Site ID: [place] Name: [facility] Address: [address] [facility] [place] [address] Director: Nirali Parekh MD Anastasia Lawson DO LABORATORY Final Result Performing Organization Address [facility] Co de Phone Number [facility] [address] [facility] [place] [address] * HEPATITIS C ANTIBODY W/RFX [...] a test for HCV RNA (test code 59369) is suggested. For additional information please refer to http://education.Rubicon Media/faq/TJP66h5 (This link is being provided for informational/ educational purposes only.) 06/19/2022 7:04 AM CDT 06/19/2022 7:06 AM CDT Narrative [facility] - 06/20/2022 10:00 AM CDT FASTING:YES FASTING: YES Yuri Granda DO LABORATORY Final Result Performing Organization Address [facility] Co de Phone Number [facility] [address] [place] [address] from Last 3 Months or Most Recently Relevant to Health Maintenance Insurance [facility] Care Teams Donor Center Technician Relationship Specialty Start Date End Date Anastasia Lawson DO [address] [place] [address] PCP - General FAMILY PRACTICE 09/23/22
--- OUTSIDE RECORDS SUMMARY | 2025-01-19 01:54 | XMS_ITS | Encounter Summary ---
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
--- OUTSIDE RECORDS SUMMARY | 2025-01-19 01:55 | XMS_ITS | Clinical Summary ---
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
--- OUTSIDE RECORDS SUMMARY | 2025-01-19 01:55 | XMS_ITS | Encounter Summary ---
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
--- OUTSIDE RECORDS SUMMARY | 2025-01-19 01:55 | XMS_ITS | Encounter Summary ---
Author Organization [facility] Address [facility] [place] [address] Care Team Providers Care Lead Javascript Developer Name Role Phone Anastasia Lawson DO Primary Care Provider [phone] Encounter Details Date Type Department Care Team (Late st Contact Info) Description 06/10/2024 ONEPLE Message Enc [facility] Medical Group Family Medicine [address], [address] [place] [phone] Anastasia Lawson DO [address] [place], [place] [phone] pap smear Social History Tobacco Use Types [...] Depression Total Score: 14 023 7:55 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
--- OUTSIDE RECORDS SUMMARY | 2025-01-19 01:55 | XMS_ITS ---
Author Organization [facility] Address [address] [place] [address] Care Team Providers Care Double Needle Operator Lockstitch Name Role Phone Dr. Clark Chadwick Primary Care Provider PrelutskYuri serna Unavailable [phone] REASON FOR VISIT RE:RE:A1C improved! Social History Sex Assigned At : Social History Observation Description Sex Assigned At Female Encounters Encounter Location Date Provider Diagnosis [facility] [address] [place] [phone] 12/21/2024 Clark Chadwick Plan Of Treatment Next Appt Details Provider Name:Clark carreon, 03/21/2025 02:30:00 PM, [facility] [place], [address], Progress Notes * Mabel GONZALEZDOB:1990 ( 34 yo F)Acc No.[id number]:12/21/2024 Patient: Mabel DIXON :1990 A ge:34 Y S ex:Female Address:[address] [place] [address] , [place] [address] * true * Date: Generated for Printi ng/Faxing/eTransmitting on: 0 01/19/2025 01:54 AM CDT
--- OUTSIDE RECORDS SUMMARY | 2025-01-19 01:55 | XMS_ITS | Encounter Summary ---
Author Organization [facility] Address [address] [place] [address] Care Team Providers Care Rock Dust Sprayer Name Role Phone Anastasia Lawson DO Primary Care Provider Encounter Details Date Type Department Care Team (Late st Contact Info) Description 03/12/2024 [employer] Message Enc [facility] Medical Group Multispecialty Care - [facility] [address] [facility], [address] [place] [address] [employer], [facility] Provider Canceled appt. 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
--- OUTSIDE RECORDS SUMMARY | 2025-01-19 01:55 | XMS_ITS ---
Author Organization [facility] Address [address] [place] [address] Care Team Providers Care Project/Production Manager Imaging Name Role Phone Dr. Clark Chadwick Primary Care Provider [phone] PrelutskYuri serna Unavailable [phone] REASON FOR VISIT Testosterone Social History Sex Assigned At : Social History Observation Description Sex Assigned At Female Encounters Encounter Location Date Provider Diagnosis [address] [address] 12/21/2024 Clark Chadwick Plan Of Treatment Next Appt Details Provider Name:Clark carreon, 03/21/2025 02:30:00 PM, [address] [place] [address], [phone], Progress Notes * Mabel WEBSTERDOB:1990 ( 34 yo F)Acc No.[id number]:12/21/2024 Patient: Mabel DIXON :1990 A ge:34 Y S ex:Female Address:[address] [place] [address] , [place] [address] * true * Date: Generated for Nik trujillo/Dora/eTransmitting on: 0 01/19/2025 01:54 AM CDT
--- OUTSIDE RECORDS SUMMARY | 2025-01-19 01:55 | XMS_ITS | Clinical Summary ---
Author Organization [facility] Address [address] [place] [address] Care Team Providers Care Deli Slicer Name Role Phone Unavailable Primary Care Provider Unavailabl e Source Comments [facility],non-owned Affiliates and Associated Physician Practices is amultiple site organization consisting of ambulatory clinics and hospital sitesin [place], [place], [place] and [place]. This disclosure is being madepursuant to the Care Everywhere program and may not contain all information available regarding this patient. Last updated 18.[facility] Social History Tobacco Use Types Packs/Day Years [...]
[2025-01-19 10:10] VITALS: BP 130/90; PULSE 62; RESP 18; TEMP 37.2; O2SAT 100
[2025-01-19] MEDS: ACETAMINOPHEN 500 MG TABLET 1000 MG PO (10:35)
[2025-01-19] MEDS: LACTATED RINGERS 1,000 ML 30 ML IV CONT (10:50)
[2025-01-19 10:57] LABS: Glucose Point of Care 108 mg/dl (65-105)
[2025-01-19 11:04] LABS: BEDSIDEPREGUCG Negative (Negative)
--- NOTE | 2025-01-19 11:38 | WPDHPUPDATE1 ---
History and Physical Update Update Date/Time: 01/19/25 11:38 History and Physical has been reviewed, including an updated exam of the patient. There are NO changes in the patient's condition. Risks, benefits, and alternatives have been discussed and questions answered. Patient agrees to proceed with procedure.
[2025-01-19] MEDS: ceFAZolin 2 GM/D5W 50 ML 2 GM/50 ML BAG IVPB (11:51)
[2025-01-19] MEDS: LIDOCAINE 1% LOCAL INJ 10 ML VIAL INFILTRATE (12:00)
[2025-01-19] MEDS: KETOROLAC 15 MG/ML VIAL (*BKC) IV PUSH (12:01)
[2025-01-19 12:09] VITALS: BP 100/40; PULSE 77; RESP 14; O2SAT 97
[2025-01-19 12:30] VITALS: BP 106/66; PULSE 57; RESP 14; O2SAT 97
[2025-01-19 13:00] VITALS: BP 136/77; PULSE 79; RESP 16
[2025-01-19 13:23] VITALS: BP 136/73; PULSE 69; RESP 16
--- NOTE | 2025-01-20 07:39 | W.PM.PROC2 ---
Procedure Note - Detailed Date of Procedure 01/20/25 Pre-op Diagnosis abnormal endometrial biopsy Post-op Diagnosis Same Procedure Performed Dilation and curettage Surgeon Mikie Lomeli MD Anesthesia MAC and Local Indications Abnormal D and C larger sample recommended Findings Uterus sound to 8, Moderate tissue obtained Description of Procedure After informed consent obtained. Patient was taken to OR. She was prepped and draped in sterile fashion. Speculum inserted. Single tooth tenaculum placed on anterior cervix. 10 cc of 1% lidocaine injected at cervicovaginal interface at 2,5,8,10 position. The cervix was dilated to 6 sandhu dilator. A sharp curettage was performed, moderate tissue obtained. Tenaculum removed, hemostasis noted. Patient tolerated procedure well. Estimated Blood Loss 5 Drains No Packing No Pathology Yes (endometrial curettings) Complications No immediate complications Condition Stable Disposition Same day [facility] Billing Surgery - Charge Forward: Surgery Billing
== END 2025-01-19 13:34 | disposition home or self-care (01) ==
PROVIDERS: Visit Provider Obstetrics & Gynecology
PROC: 0U5B8ZZ Destruction of Endometrium, Via Natural or Artificial Opening Endoscopic (ICD-10-PCS; CPT 58563; principal; 2025-01-19 12:00)
DX: N85.8 Other specified noninflammatory disorders of uterus (principal); E78.5 Hyperlipidemia, unspecified; E11.9 Type 2 diabetes mellitus without complications; J45.909 Unspecified asthma, uncomplicated; F41.9 Anxiety disorder, unspecified; Z80.3 Family history of malignant neoplasm of breast; Z80.1 Family history of malignant neoplasm of trachea, bronchus and lung; Z80.0 Family history of malignant neoplasm of digestive organs; Z82.49 Family history of ischemic heart disease and other diseases of the circulatory system
CPT/HCPCS: 58120; 82948; 88305; A9270; J0690; J1885; J2003; J2250; J2704; J7120

== ENCOUNTER 2025-02-23 14:33 | Outpatient (CLI) | payer OTHER, SELFPAY ==
[2025-02-23 15:22] LABS: Hematocrit 45.1 % (37.0-47.0); Hemoglobin 14.5 g/dL (12.0-15.0); Mean Corpuscular HGB Conc 32.2 g/dl (32-36); Mean Corpuscular Hemoglobin 27.6 pg (26-34); Mean Corpuscular Volume 85.9 fl (80-100); Mean Platelet Volume 10.9 fl (7.4-10.4); Platelet Count Result 289 k/mm3 (150-375); Red Blood Count 5.25 M/mm3 (4.2-5.4); Red Cell Distribution Width 13.9 % (11.5-14.5); White Blood Count 10.1 K/mm3 (4.5-10.0)
--- OUTSIDE RECORDS SUMMARY | 2025-02-23 17:16 | XMS_ITS | Clinical Summary ---
Author Organization [facility] [employer] Address [address] [place] [address] Care Team Providers Care Security Patrol Driver Name Role Phone Unavailable Primary Care Provider Unavailabl e Source Comments [facility],non-owned Affiliates and Associated Physician Practices is amultiple site organization consisting of ambulatory clinics and hospital sitesin [place], [place], [place] and [place]. This disclosure is being madepursuant to the Care Everywhere program and may not contain all information available regarding this patient. Last updated 18.[facility] [employer] Social History Tobacco Use Types Packs/Day Years [...] on patient's age to complete this topic Insurance SELF PAY NO INSURANCE Member Subscriber Plan / Payer (Ef fective for All Dates) Name:Lexi Webster Member ID:Not on file Relation to Subscriber:Not on file Name:LEXI WEBSTER Subscriber ID:Not on file (Home) Address: [address] [place], [place] [address] Payer ID:Not on file Group ID:Not on file Type:Self Pay Address: [facility]
--- OUTSIDE RECORDS SUMMARY | 2025-02-23 17:16 | XMS_ITS | Clinical Summary ---
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
== END 2025-02-23 14:34 | disposition home or self-care (01) ==
LOC: ANHLAB 14:34
PROVIDERS: Visit Provider Obstetrics & Gynecology
DX: N93.9 Abnormal uterine and vaginal bleeding, unspecified (principal)
CPT/HCPCS: 36415; 85027

== ENCOUNTER 2025-03-01 06:34 | Outpatient (CLI) | payer OTHER, SELFPAY ==
--- OUTSIDE RECORDS SUMMARY | 2025-03-01 06:38 | XMS_ITS | Encounter Summary ---
Author Organization [facility] Address [facility] [place] [address] Care Team Providers Care Instrument Designer Name Role Phone Anastasia Lawson DO Primary Care Provider [phone] Encounter Details Date Type Department Care Team (Late st Contact Info) Description 06/11/2024 Unwired Nationt Message Enc [facility] Medical Group Family Medicine [address], [address] [place] [address] Anastasia Lawson DO [address] [place], [place] [phone] Eye exam Social History Tobacco Use Types [...] Depression Total Score: 14 023 7:55 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
--- OUTSIDE RECORDS SUMMARY | 2025-03-01 06:38 | XMS_ITS | Encounter Summary ---
Author Organization [facility] Address [address] [place] [address] Care Team Providers Care Press Tender Name Role Phone Anastasia Lawson DO Primary Care Provider [phone] Encounter Details Date Type Department Care Team (Late st Contact Info) Description 05/28/2023 Recovr Message Enc [facility] Medical Group Multispecialty Care - [facility] [address] [facility], [address] [place] [address] Pete, [facility] Provider FMLA paperwork Social History Tobacco Use [...] Depression Total Score: 14 023 7:55 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
--- OUTSIDE RECORDS SUMMARY | 2025-03-01 06:38 | XMS_ITS | Clinical Summary ---
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
--- OUTSIDE RECORDS SUMMARY | 2025-03-01 06:38 | XMS_ITS | Clinical Summary ---
Author Organization [facility] [employer] Address [address] [place] [address] Care Team Providers Care Cotton Broker Name Role Phone Unavailable Primary Care Provider Unavailabl e Source Comments [facility],non-owned Affiliates and Associated Physician Practices is amultiple site organization consisting of ambulatory clinics and hospital sitesin [place], [place], [place] and [place]. This disclosure is being madepursuant to the Care Everywhere program and may not contain all information available regarding this patient. Last updated 18.[facility] [employer] Social History Tobacco Use Types Packs/Day Years [...] WEBSTER Subscriber ID:Not on file (Home) Address: [address] [place], [place] [id number] Payer ID:Not on file Group ID:Not on file Type:Self Pay Address: [facility] Address: [facility] [id number] [place] [address] [address]
--- OUTSIDE RECORDS SUMMARY | 2025-03-01 06:38 | XMS_ITS | Encounter Summary ---
Author Organization [facility] Address [facility] [place] [address] Care Team Providers Care Community Support Specialist Name Role Phone Anastasia Lawson DO Primary Care Provider [phone] Encounter Details Date Type Department Care Team (Late st Contact Info) Description 08/20/2023 [employer] Message Enc [facility] Medical Group Family Medicine [address], [address] [place] [address] Pete, [facility] Provider FMLA Social History Tobacco Use [...] Depression Total Score: 14 023 7:55 AM SURGICAL PATHOLOGIST documented as of this encounter Care Teams Community Support Specialist Relationship Specialty Start Date End Date Anastasia Lawson DO [address] [place] [address] PCP - General FAMILY PRACTICE 1/9/23 documented as of this encounter
--- OUTSIDE RECORDS SUMMARY | 2025-03-01 06:38 | XMS_ITS | Patient Health Record ---
Author Organization [facility] Address [address] [place] [address] Care Team Providers Care Quality Assurance Calibrator Name Role Phone Dr. Clark Chadwick Primary Care Provider PrelutskYuri serna Unavailable [phone] Allergies No Known Allergies Results Component Value Reference Range Notes Hemoglobin A1C Reviewed date:12/20/2024 04:08:36 PM Interpretation: Performing Lab: Notes/Report: HbA1c 6.2 Comp. Metabolic Panel (14) Reviewed date:12/21/2024 08:24:02 AM Interpretation: Performing Lab:[facility] [place], [address] [facility], [place], Phone - [phone], Director - Mirlande Notes/Report: Glucose 102 70-99 [...] 0-40 IU/L ALT (SGPT) 18 0-32 IU/L CBC With Differential/Platel et Reviewed date:12/21/2024 08:24:02 AM Interpretation: Performing Lab:[email or web address] [place], [address] [facility], Phone - [phone], Director - Mirlande Notes/Report: WBC 9.0 3.4-10.8 x10E3/uL RBC 5.61 [...] Basos 1 Not Estab. % Immature Cells PAVING BLOCK CUTTER Neutrophils (Absolute) 5.0 1.4-7.0 x10E3/uL Lymphs (Absolute) 3.2 0.7-3.1 x10E3/uL Monocytes(Absolute) 0.5 0.1-0.9 x10E3/uL Eos (Absolute) 0.3 0.0-0.4 x10E3/uL Baso (Absolute) 0.1 0.0-0.2 x10E3/uL Immature Granulocytes 0 Not Estab. % Immature Grans (Abs) 0.0 0.0-0.1 x10E3/uL NRBC PAVING BLOCK CUTTER Hematology Comments: PAVING BLOCK CUTTER Testosterone, Serum Reviewed date:12/21/2024 08:24:02 AM Interpretation: Performing Lab:[email or web address] [place], [address] [facility], Phone - [phone], Director - Mirlande Notes/Report: Testosterone 859 8-60 ng/dL CBC With Differential/Platel et Reviewed date:06/18/2024 08:14:37 PM Interpretation: Performing Lab:[facility] [place], [address] [facility], Phone - [phone], Director - Mirlande Notes/Report: Clinical Information:SRC: SRC:TH [...] Basos 0 Not Estab. % Immature Cells PAVING BLOCK CUTTER Neutrophils (Absolute) 7.7 1.4-7.0 x10E3/uL Lymphs (Absolute) 2.9 0.7-3.1 x10E3/uL Monocytes(Absolute) 0.4 0.1-0.9 x10E3/uL Eos (Absolute) 0.1 0.0-0.4 x10E3/uL Baso (Absolute) 0.1 0.0-0.2 x10E3/uL Immature Granulocytes 0 Not Estab. % Immature Grans (Abs) 0.0 0.0-0.1 x10E3/uL NRBC PAVING BLOCK CUTTER Hematology Comments: PAVING BLOCK CUTTER RPR Reviewed date:06/18/2024 08:14:37 PM Interpretation: Performing Lab:[facility] [place], [address] [place] [address], Phone - [phone], Director - [facility] Notes/Report: Clinical Information:SRC: SRC: RPR Non Reactive Non Reactive Testosterone, Total, LC/MS Reviewed date:07/05/2024 08:03:59 AM Interpretation: Performing Lab:[facility], [address] [place] [address], Phone - [phone], Director - [facility] Notes/Report: Clinical Information:SRC: SRC: Testosterone, Total, LC/MS 410 This test was developed and its performance characteristics determined by [facility]. It has not been cleared or approved by the Food and Drug Administration. Reference Range: Adult Females Premenopausal 10 - 55 Postmenopausal 7 - 40 HIV 1/2 Antibody Panel 14896 5 Reviewed date:06/18/2024 08:14:37 PM Interpretation: Performing Lab:[facility] [place], [address] [facility], Phone - [phone], Director - Mirlande Notes/Report: Clinical Information:SRC: SRC: HIV Ab/p24 Ag Screen Non Reactive Non Reactive HIV-1/HIV-2 antibodies and HIV-1 p24 antigen were NOT detected. There is no laboratory evidence of HIV infection. HIV Negative Chlamydia/GC Amplification Reviewed date:06/20/2024 08:30:45 PM Interpretation: Performing Lab:[email or web address] [place], [address] [place] [address], Phone - [phone], Director - Shaji Notes/Report: Clinical Information:SRC: SRC: Chlamydia trachomatis, LUIS CARLOS Negative Negative Neisseria gonorrhoeae, LUIS CARLOS Negative Negative Ct/GC LUIS CARLOS, Pharyngeal Reviewed date:06/18/2024 08:14:37 PM Interpretation: Performing Lab:[facility] [place], [address] [place] [address], Phone - [phone], Director - Shaji Notes/Report: Clinical Information:SRC: SRC: C. trachomatis, LUIS CARLOS, Pharyn Negative Negative N. gonorrhoeae, LUIS CARLOS, Pharyn Negative Negative Comp. Metabolic Panel (14) Reviewed date:06/18/2024 08:14:37 PM Interpretation: Performing Lab:[facility] [place], [address] [facility], Phone - [phone], Director - Mirlande Notes/Report: Clinical Information:SRC: SRC: [...] HbA1c 6.9 CBC With Differential/Platel et Reviewed date:09/22/2024 08:37:23 AM Interpretation: Performing Lab:[facility] [place], [address] [facility], Phone - [phone], Director - Mirlande Notes/Report: WBC 10.5 3.4-10.8 [...] Basos 1 Not Estab. % Immature Cells PAVING BLOCK CUTTER Neutrophils (Absolute) 6.6 1.4-7.0 x10E3/uL Lymphs (Absolute) 3.3 0.7-3.1 x10E3/uL Monocytes(Absolute) 0.4 0.1-0.9 x10E3/uL Eos (Absolute) 0.2 0.0-0.4 x10E3/uL Baso (Absolute) 0.1 0.0-0.2 x10E3/uL Immature Granulocytes 0 Not Estab. % Immature Grans (Abs) 0.0 0.0-0.1 x10E3/uL NRBC PAVING BLOCK CUTTER Hematology Comments: PAVING BLOCK CUTTER Testosterone, Total, LC/MS Reviewed date:09/30/2024 07:21:43 PM Interpretation: Performing Lab:[facility], [address] [facility], Phone - [phone], Director - Ashleigh Notes/Report: Testosterone, Total, LC/MS 226 This test was developed and its performance characteristics determined by [facility]. It has not been cleared or approved by the Food and Drug Administration. Reference Range: Adult Females Premenopausal 10 - 55 Postmenopausal 7 - 40 Comp. Metabolic Panel (14) Reviewed date:09/22/2024 08:37:23 AM Interpretation: Performing Lab:[facility] [place], [address] [facility], Phone - [phone], Director - Mirlande Notes/Report: Glucose 122 70-99 [...] HbA1c 7.4 CBC With Differential/Platel et Reviewed date:03/21/2024 05:33:48 PM Interpretation: Performing Lab:[facility] [place], [address] [facility], Phone - [phone], Director - Mirlande Notes/Report: WBC 9.8 3.4-10.8 [...] Basos 1 Not Estab. % Immature Cells PAVING BLOCK CUTTER Neutrophils (Absolute) 5.9 1.4-7.0 x10E3/uL Lymphs (Absolute) 3.3 0.7-3.1 x10E3/uL Monocytes(Absolute) 0.4 0.1-0.9 x10E3/uL Eos (Absolute) 0.1 0.0-0.4 x10E3/uL Baso (Absolute) 0.1 0.0-0.2 x10E3/uL Immature Granulocytes 0 Not Estab. % Immature Grans (Abs) 0.0 0.0-0.1 x10E3/uL NRBC PAVING BLOCK CUTTER Hematology Comments: PAVING BLOCK CUTTER Comp. Metabolic Panel (14) Reviewed date:03/21/2024 05:33:48 PM Interpretation: Performing Lab:[facility] [place], [address] [facility], [place], Phone - [phone], Director - Mirlande Notes/Report: Glucose 106 70-99 [...] PM Interpretation: Performing Lab: Notes/Report: HbA1c 6.6 Reason For Referral Reason ADHD evaluation Diagnosis 1 Concentration defici t (R41.840) Referral Organization [facility], [facility] Referring Provider First Name Clark Referring Provider Last Name Netta Referring Provider Speciality Internal M edicine Referred Provider Specialty Psychologist General Notes Teresa Pollack 09/25/19 25 10:55:20 AM > sent to [facility] Referral Priority Routine Medications Medication SIG (Take, Route, Frequency, Duration) Notes Start Date End Date Status Ubrelvy 100 MG 1 tablet may take se cond dose at least 2 hours after first dose as needed Orally Once a day Active Ozempic (0.25 or 0.5 MG/DOSE) 2 MG/3ML 0.25mg Subcutaneous weekly Active Sertraline HCl 50 MG TAKE 1 TABLET BY [place] [facility] EVERY DAY for 90 Active Finasteride 5 MG 1 tablet Orally Once a day for 30 days Active metFORMIN HCl 1000 MG TAKE 1 TABLET BY [facility] TWICE DAILY WITH A MEAL for 90 Active Fioricet 50-300-40 MG 2 capsule as neede d Orally every day for 30 days Active Atorvastatin Calcium 20 MG 1 tablet Oral ly Once a day for 90 days 06/18/2023 Active Ondansetron 4 MG 1 tablet on the [facility] ue and allow to dissolve Orally Once a day Active Nortriptyline HCl 25 MG 1 capsule at [facility] Orally Once a day for 30 days 01/08/2024 Active Meloxicam 15 MG TAKE 1 TABLET BY [facility] EVERY DAY for 30 Active Multivitamin Active Cetirizine HCl 10 MG 1 tablet Orally Once a day Active Finasteride 5 MG TAKE 1 TABLET BY [facility] EVERY DAY for 30 Active Farxiga 10 MG 1 tablet Orally Once a day Active Testosterone Cypionate 200 MG/ML 0.5 mL Intramuscular weekly for 28 days 12/21/2024 Active Needle (Disp) 18G X 1-2 as directed t o draw up medication as directed for 90 days Active Propranolol HCl 10 MG 1 tablet Orally Once a day Active Slynd 4 MG 1 tablet Orally Once a day Active Syringe (Disposable) 1 ML as directed In jected weekly for 90 days Active Needle (Disp) 23G X 1-4 as directed t o inject medication as directed for 90 days Active Albuterol Sulfate HFA 108 (90 Base) mcg/act 2 puffs as needed Inhalation every 4 hrs Active metFORMIN HCl 1000 MG 1 tablet with a me al Orally Twice a day Active Aimovig 70 MG/ML as directed Subcutan eous monthly Active Sertraline HCl 50 MG 1.5 tablet Orally O nce a day for 90 days Active Immunizations Vaccine Route [...] Problem Status W/U Status Risk Notes Problem 202198986 Type 2 diabetes mellitus without complication, without long-term current use of insulin (E11.9) Active confirmed Problem Gender dysphoria (84661593) Gender dysphoria (F64.9) Active confirmed Problem 00853142 Anxiety (F41.9) Active confirmed Problem 57221970 SESAR (obstructive sleep apnea) (G47.33) Active confirmed Problem 850612423 MDD (major depressive disorder), recurrent episode, moderate (F33.1) Active confirmed Problem 351706067 Asthma, mild intermittent, well-controlled (J45.20) Active confirmed Problem 95013852 Concentration deficit (R41.840) Active confirmed Problem 439082311 Chronic migraine w/o aura w/o status migrainosus, not intractable (G43.709) Active confirmed Problem Endometrial hyperplasia without atypia (87545114100251 8) Endometrial hyperplasia without atypia (N85.00) Active [...] N/A Encounters Encounter Location Date Provider Diagnosis [address] [address] 03/17/2024 Clark Chadwick Chronic migraine w/o aura w/o status migrainosus, [...] left shoulder M25.512 and Cerumen impaction H61.[address] [address] 06/17/2024 Clark Tochtrop Chronic migraine w/o aura [...] High risk sexual behavior, unspecified type Z72.[address] [address] 07/22/2024 Clark Tochtrop Finger pain, right M79.[address] [address] 09/21/2024 Clark Tochtrop Chronic migraine w/o aura [...] unspecified type Z72.51 and Concentration deficit R41.[address] [place] [address] 12/20/2024 [facility] Chronic migraine w/o aura w/o status [...] ; Concentration deficit R41.840 and Intertrigo L30.[address] [address] 07/05/[address] [address] 09/22/[address] [address] 09/30/2024 [facility] Gender dysphoria F64.[address] [address] 12/21/2024 [facility], [address] [address] 03/23/[address] [address] 04/02/2024 [facility], [address] [address] 04/02/2024 [facility] Gender dysphoria F64.[address] [address] 06/24/2024 [facility] Gender dysphoria F64.[address] [address] 07/05/2024 [facility] Gender dysphoria F64.9 [facility], [facility] [address] [place] [address] 07/17/2024 [facility], [facility] [address] [place] [address] 09/22/2024 [facility], [facility] [address] [place] [address] 09/30/2024 [facility], [facility] [address] [place] [address] 11/03/2024 [facility], [facility] [address] [place] [address] 11/15/2024 [facility], [facility] [address] [place] [address] 11/16/2024 [facility], [facility] [address] [place] [address] 12/21/2024 [facility], [facility] [address] [place] [address] 12/21/2024 [facility], [facility] [address] [place] [address] 12/21/2024 [facility], [facility] [address] [place] [address] 12/21/2024 [facility] Gender dysphoria F64.9 [facility] [address] [place] [address] 02/23/2025 [facility] Assessments Encounter Date Diagnosis (ICD Code) [...] Bilateral 03/17/2024 Next Appt Details Provider Name:Clark carreon, 03/21/2025 02:30:00 PM, [address] [place], [address], Insurance Providers Payer Name Payer Address Payer Phone Subscriber Number Group Number Insured Name Patient Relationship to Insured Coverage Start Date Coverage End Date [facility] [address] [place] [phone] [id number] Mabel Gonzalez Self - patient is the [...]
--- OUTSIDE RECORDS SUMMARY | 2025-03-01 06:38 | XMS_ITS | Encounter Summary ---
Author Organization [facility] Address [facility] access hospital[address] [place] [address] Care Team Providers Care Process Area Supervisor Name Role Phone Anastasia Lawson DO Primary Care Provider [phone] Encounter Details Date Type Department Care Team (Late st Contact Info) Description 06/10/2024 Peer[employer]ader Message Enc [facility] Medical [facility] Family Medicine [address], [address] [place] [phone] Anastasia Lawson DO [address] [place], [place] [phone] pap smear Social History Tobacco Use Types [...] Depression Total Score: 14 023 7:55 AM MAIL ORDER SORTER documented as of this encounter Care Teams Process Area Supervisor Relationship Specialty Start Date End Date Anastasia Lawson DO [address] [place] [address] PCP - General FAMILY PRACTICE 09/23/22 documented as of this encounter
--- OUTSIDE RECORDS SUMMARY | 2025-03-01 06:38 | XMS_ITS | Encounter Summary ---
Author Organization [facility] Address [address] [place] [address] Care Team Providers Care Winding Rack Operator Name Role Phone Anastasia Lawson DO Primary Care Provider [phone] Encounter Details Date Type Department Care Team (Late st Contact Info) Description 03/12/2024 [employer] Message Enc [facility] Medical Group Multispecialty Care - [facility] [address] [facility], [address] [place] [address] [employer], [facility] Provider Canceled appt. 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 [place] [address] PCP - General FAMILY PRACTICE 09/23/22 documented as of this encounter
--- OUTSIDE RECORDS SUMMARY | 2025-03-01 06:38 | XMS_ITS | Clinical Summary ---
Author Organization [facility] Address [facility] [place] [address] Care Team Providers Care Freight Car Builder Name Role Phone Anastasia Lawson DO Primary Care Provider [phone] Allergies Active Allergy Reactions Criticality Noted Date [...] 1 06/27/20 Active B-D 3CC LUER-HARRISON SYR 18YP3-1/2 23G X 1-/2 3 ML Misc USE [...] hyperglycemia, without long-term current use of insulin ([facility]) 11/18/2022 Mixed hyperlipidemia 11/18/2022 PHILLIP (generalized anxiety disorder) 11/18/2022 Seasonal allergic rhinitis due to pollen 022 Mild intermittent asthma, un specified whether complicated ([facility]) 06/05/2022 Anxiety 06/05/2022 Depressed mood 06/05/2022 Endometrial hyperplasia without atypia, complex 12/03/2019 Chronic migraine without aur a without status migrainosus, not intractable 07/04/2011 Immunizations Immunization Administration Dates Next Due Influenza (Generic) 06/13/2021 Influenza Adult (Generic) 06/29/2022 MODERNA COVID-19 ([facility] JEFFREY MICHELLE), MRNA, LNP-S, PF, 50 MCG/ [...] Comments Blood Pressure 116/82 11/18/2023 1:42 PM OPHTHALMIC PATHOLOGIST Pulse 93 11/18/2023 1:42 PM OPHTHALMIC PATHOLOGIST Temperature 37.2 C (99 F) 11/18/2023 1:42 PM OPHTHALMIC PATHOLOGIST Respiratory Rate 17 07/15/2023 11:03 AM CDT Oxygen Saturation 97% 11/18/2023 1:42 PM OPHTHALMIC PATHOLOGIST Inhaled Oxygen Concentration - - Weight 104.3 kg (230 lb) 11/18/2023 1:42 PM OPHTHALMIC PATHOLOGIST Height 157.5 cm (5' 2) 11/18/2023 1:42 PM OPHTHALMIC PATHOLOGIST Body Mass Index 42.07 11/18/2023 1:42 PM OPHTHALMIC PATHOLOGIST Plan of Treatment Health Maintenance Due Date [...] season) 2024 01/19/2022, 01/05/2021, 12/15/2020 PHQ-2 (Physician Chemehuevi) 09/15/2024 11/18/2023 DTaP, Tdap and Td Vaccines [...] A1C 6.0(H) <5.7 % of total Hgb [facility] [place] Comment: For someone without known diabetes, [...] AM CDT 03/07/2023 7:30 AM CDT Narrative [facility] - 03/08/2023 3:51 AM CDT FASTING:YES FASTING: YES Resulting Agency Comment Performing Organization Information: Site ID: [id number] [facility]: [facility] Address: [address] [address] Director: Nirali Parekh us Anastasia Lulu DO LABORATORY Final Result [facility] [place] [id number] [place] [address] [place] [address], * (ABNORMAL) LIPID PANEL (03/07/2023 7:29 AM CDT) CHOLESTEROL 105 <200 mg/dL [facility] HDL 33(L) > OR = 50 mg/dL [facility] TRIGLYCERIDES 110 <150 mg/dL [facility] LDL (CALCULATED) 52 mg/dL (calc) [facility] Comment: Reference range: <100 Desirable range <100 mg/dL for primary prevention; <70 mg/dL for patients with CHD or diabetic patients with > or = 2 CHD risk factors. LDL-C is now calculated using the Aj-Diana calculation, which is a validated novel method providing better accuracy than the Friedewald equation in the estimation of LDL-C. Aj SS et al. CHELO. 2013;310(19): 9667-4066 (http://education.Nebo.ru.Sqoot/faq/ZGS898) CHOL/HDL RATIO 3.2 <5.0 (calc) [facility] NON HDL CHOLESTEROL 72 <130 mg/dL (calc) [facility] Comment: For patients with diabetes plus 1 major ASCVD risk factor, treating to a non-HDL-C goal of <100 mg/dL (LDL-C of <70 mg/dL) is considered a therapeutic option. 03/07/2023 7:29 AM CDT 03/07/2023 7:30 AM CDT Narrative [facility] - 03/08/2023 3:51 AM CDT FASTING:YES FASTING: YES Resulting Agency Comment Performing Organization Information: Site ID: [id number] Name: [facility] Address: [address] [place] [address] Director: Nirali Parekh MD Anastasia Lawson DO LABORATORY Final Result Performing Organization Address [facility] Co de Phone Number [facility] [address] [facility] [address] * HEPATITIS C ANTIBODY W/RFX TO HCV [...] a test for HCV RNA (test code 62539) is suggested. For additional information please refer to http://education.STARR [employer] Sciences/faq/ZBN67e0 (This link is being provided for informational/ educational purposes only.) 06/19/2022 7:04 AM CDT 06/19/2022 7:06 AM CDT Narrative [facility] - 06/20/2022 10:00 AM CDT FASTING:YES FASTING: YES Yuri Granda DO LABORATORY Final Result Performing Organization Address [facility] Co de Phone Number [facility] [address] [place] [address] from Last 3 Months or Most Recently Relevant to Health Maintenance Insurance [employer] Care Teams Freight Car Builder Relationship Specialty Start Date End Date Anastasia Lawson DO [address] [place] [address] PCP - General FAMILY PRACTICE 09/23/22
== END 2025-03-01 06:35 | disposition home or self-care (01) ==
LOC: ANHLAB 06:36
PROVIDERS: Visit Provider Obstetrics & Gynecology
DX: N93.9 Abnormal uterine and vaginal bleeding, unspecified (principal)
CPT/HCPCS: 36415; 86850; 86900; 86901

== ENCOUNTER 2025-03-02 02:02 | Day surgery (SDC) | payer OTHER, SELFPAY ==
--- NOTE | 2025-02-28 10:55 | PC.NURSE ---
Report to the Outpatient Waiting Room, entrance under the green pavilion located off [facility], at time _0600_ on date _02-33-1622_. Planned Procedure Time: _0730_.? Time changes happen often and if your time is changed the preop area will call you the afternoon before. - You and your visitor will be asked to self-screen and do not enter if you have any COVID symptoms. Please call surgeon if you need to reschedule. - A mask is optional within the hospital at this time. Patients may have clear liquids (water, carbonated beverages, clear teas, apple juice) until 3 hours prior to surgery with a maximum of 20 ounces. - No food from midnight until time of surgery and no smoking, or chewing tobacco (or any form of nicotine). No chewing gum, candy or mints. Take only the following medications with a SIP of water on the morning of surgery: ___None DO NOT STOP ANY OF YOUR OTHER PRESCRIPTION MEDICATIONS PRIOR TO SURGERY EXCEPT THE FOLLOWING Hold all vitamins and supplements for 3 days per anesthesiologist. Medications to discontinue per physician Date to take last dose__Hold now till after surgery.____ Please no make-up, nail sammarinese, hairspray, perfume, deodorant, or body powder the day of surgery.? No jewelry (including any body piercings) or valuables the day of surgery, leave them at home.? Please take a shower or bath the night before, or the morning of, surgery with an antibacterial soap.? Wear comfortable, loose fitting clothing.? - Jewelry must be removed prior to entering the operating room.? Rings and piercings that are not removed may be cut off. - The hospital will not accept responsibility for valuables.? - Please leave all valuables, including medications, at home the day of surgery. If you are going home after surgery, a licensed route driver must drive you home.? - NO public transportation without another adult if you receive anesthesia. - We recommend that an adult stay with you for 24 hours following discharge. - We also recommend that you do not drive, make important decision, drink alcoholic beverages, or take any drugs that were not prescribed by your health care provider for at least 24 hours after your discharge time. Follow any additional instructions given to you from your surgeon. Telephone instructions given to __[place]___and asked if any additional questions and then verbalized understanding. Patient advised to call surgeon office or pre surgery nurse liaison [phone] if any additional questions.
[2025-02-28 11:07] VITALS: BMI 38.3
[2025-03-02] VITALS (11 sets, daily range): BP systolic 115–135; BP diastolic 56–85; PULSE 60–88; RESP 12–20; TEMP 36.4–36.9; O2SAT 91–100; BMI 37.7
--- OUTSIDE RECORDS SUMMARY | 2025-03-02 02:06 | XMS_ITS | Clinical Summary ---
Author Organization [facility] Address [address] [place] [address] Care Team Providers Care Foil Spinner Name Role Phone Unavailable Primary Care Provider Unavailabl e Source Comments [facility],non-owned Affiliates and Associated Physician Practices is amultiple site organization consisting of ambulatory clinics and hospital sitesin [place], [place], [place] and [place]. This disclosure is being madepursuant to the Care Everywhere program and may not contain all information available regarding this patient. Last updated 18.[facility] Social History Tobacco Use Types Packs/Day Years [...] WEBSTER Subscriber ID:Not on file (Home) Address: [address] [place], [place] [id number] Payer ID:Not on file Group ID:Not on file Type:Self Pay Address: [facility]
--- OUTSIDE RECORDS SUMMARY | 2025-03-02 02:06 | XMS_ITS | Clinical Summary ---
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
--- OUTSIDE RECORDS SUMMARY | 2025-03-02 02:06 | XMS_ITS | Patient Health Record ---
[facility] Organization [email or web address] Address [address] [place] [address] Care Team Providers Care Chair Springer Name Role Phone Dr. Clark Chadwick Primary Care Provider PrelutskyYuri Unavailable [phone] Allergies No Known Allergies Results Component Value Reference Range Notes Hemoglobin A1C Reviewed date:06/17/2024 04:11:26 PM Interpretation: Performing Lab: Notes/Report: HbA1c 6.9 Comp. Metabolic Panel (14) Reviewed date:06/18/2024 08:14:37 PM Interpretation: Performing Lab:[facility] [place], [address], [place], Phone - [phone], Director - Mirlande Notes/Report: Clinical Information:SRC: SRC:TH [...] Pharyngeal Reviewed date:06/18/2024 08:14:37 PM Interpretation: Performing Lab:[facility], [address] [place] [address], Phone - [phone], Director - Shaji Notes/Report: Clinical Information:SRC: SRC: C. trachomatis, LUIS CARLOS, Pharyn Negative Negative N. gonorrhoeae, LUIS CARLOS, Pharyn Negative Negative Chlamydia/GC Amplification Reviewed date:06/20/2024 08:30:45 PM Interpretation: Performing Lab:[facility], [address] [place] [address], Phone - [phone], Director - Shaji Notes/Report: Clinical Information:SRC: SRC: Chlamydia trachomatis, LUIS CARLOS Negative Negative Neisseria gonorrhoeae, LUIS CARLOS Negative Negative HIV 1/2 Antibody Panel 31312 5 Reviewed date:06/18/2024 08:14:37 PM Interpretation: Performing [facility], [address] [place] [address], Phone - [phone], Director - Mirlande Notes/Report: Clinical Information:SRC: SRC: HIV Ab/p24 Ag Screen Non Reactive Non Reactive HIV-1/HIV-2 antibodies and HIV-1 p24 antigen were NOT detected. There is no laboratory evidence of HIV infection. HIV Negative Testosterone, Total, LC/MS Reviewed date:07/05/2024 08:03:59 AM Interpretation: Performing Lab:[facility], [address] [place] [address], Phone - [phone], Director - Ashleigh Notes/Report: Clinical Information:SRC: SRC:TH Testosterone, Total, LC/MS 410 This test was developed and its performance characteristics determined by [email or web address]. It has not been cleared or approved by the Food and Drug Administration. Reference Range: Adult Females Premenopausal 10 - 55 Postmenopausal 7 - 40 RPR Reviewed date:06/18/2024 08:14:37 PM Interpretation: Performing Lab:[facility], [address] [facility], Phone - [phone], Director - Mirlande Notes/Report: Clinical Information:SRC: SRC: RPR Non Reactive Non Reactive CBC With Differential/Platel et Reviewed date:06/18/2024 08:14:37 PM Interpretation: Performing Lab:[facility] [place], [address] [facility], Phone - [phone], Director - Mirlande Notes/Report: Clinical Information:SRC: SRC:TH [...] Basos 0 Not Estab. % Immature Cells UNEMPLOYMENT SPECIALIST Neutrophils (Absolute) 7.7 1.4-7.0 x10E3/uL Lymphs (Absolute) 2.9 0.7-3.1 x10E3/uL Monocytes(Absolute) 0.4 0.1-0.9 x10E3/uL Eos (Absolute) 0.1 0.0-0.4 x10E3/uL Baso (Absolute) 0.1 0.0-0.2 x10E3/uL Immature Granulocytes 0 Not Estab. % Immature Grans (Abs) 0.0 0.0-0.1 x10E3/uL NRBC UNEMPLOYMENT SPECIALIST Hematology Comments: UNEMPLOYMENT SPECIALIST Hemoglobin A1C Reviewed date:09/21/2024 04:25:31 PM Interpretation: Performing Lab: Notes/Report: HbA1c 7.4 Comp. Metabolic Panel (14) Reviewed date:09/22/2024 08:37:23 AM Interpretation: Performing Lab:[facility], [address] [facility], [place], Phone - [phone], Director - Mirlande Notes/Report: Glucose 122 70-99 [...] LC/MS Reviewed date:09/30/2024 07:21:43 PM Interpretation: Performing Lab:[facility], [address] [facility], Phone - [phone], Director - [facility] Notes/Report: Testosterone, Total, LC/MS 226 This test was developed and its performance characteristics determined by [facility]. It has not been cleared or approved by the Food and Drug Administration. Reference Range: Adult Females Premenopausal 10 - 55 Postmenopausal 7 - 40 CBC With Differential/Platel et Reviewed date:09/22/2024 08:37:23 AM Interpretation: Performing Lab:[facility] [place], [address] [facility], Phone - [phone], Director - Mirlande Notes/Report: WBC 10.5 3.4-10.8 [...] Basos 1 Not Estab. % Immature Cells UNEMPLOYMENT SPECIALIST Neutrophils (Absolute) 6.6 1.4-7.0 x10E3/uL Lymphs (Absolute) 3.3 0.7-3.1 x10E3/uL Monocytes(Absolute) 0.4 0.1-0.9 x10E3/uL Eos (Absolute) 0.2 0.0-0.4 x10E3/uL Baso (Absolute) 0.1 0.0-0.2 x10E3/uL Immature Granulocytes 0 Not Estab. % Immature Grans (Abs) 0.0 0.0-0.1 x10E3/uL NRBC UNEMPLOYMENT SPECIALIST Hematology Comments: UNEMPLOYMENT SPECIALIST Hemoglobin A1C Reviewed date:12/20/2024 04:08:36 PM Interpretation: Performing Lab: Notes/Report: HbA1c 6.2 Comp. Metabolic Panel (14) Reviewed date:12/21/2024 08:24:02 AM Interpretation: Performing Lab:[facility] [place], [address] [facility], Phone - [phone], Director - Mirlande Notes/Report: Glucose 102 70-99 [...] Reviewed date:12/21/2024 08:24:02 AM Interpretation: Performing Lab:[facility] [place], [address] [facility], [place], Phone - [phone], Director - Mirlande Notes/Report: WBC 9.0 3.4-10.8 [...] Basos 1 Not Estab. % Immature Cells UNEMPLOYMENT SPECIALIST Neutrophils (Absolute) 5.0 1.4-7.0 x10E3/uL Lymphs (Absolute) 3.2 0.7-3.1 x10E3/uL Monocytes(Absolute) 0.5 0.1-0.9 x10E3/uL Eos (Absolute) 0.3 0.0-0.4 x10E3/uL Baso (Absolute) 0.1 0.0-0.2 x10E3/uL Immature Granulocytes 0 Not Estab. % Immature Grans (Abs) 0.0 0.0-0.1 x10E3/uL NRBC UNEMPLOYMENT SPECIALIST Hematology Comments: UNEMPLOYMENT SPECIALIST CBC With Differential/Platel et Reviewed date:03/21/2024 05:33:48 PM Interpretation: Performing Lab:[facility] [place], [address] [facility], Phone - [phone], Director - Mirlande Notes/Report: WBC 9.8 3.4-10.8 [...] Basos 1 Not Estab. % Immature Cells UNEMPLOYMENT SPECIALIST Neutrophils (Absolute) 5.9 1.4-7.0 x10E3/uL Lymphs (Absolute) 3.3 0.7-3.1 x10E3/uL Monocytes(Absolute) 0.4 0.1-0.9 x10E3/uL Eos (Absolute) 0.1 0.0-0.4 x10E3/uL Baso (Absolute) 0.1 0.0-0.2 x10E3/uL Immature Granulocytes 0 Not Estab. % Immature Grans (Abs) 0.0 0.0-0.1 x10E3/uL NRBC UNEMPLOYMENT SPECIALIST Hematology Comments: UNEMPLOYMENT SPECIALIST Comp. Metabolic Panel (14) Reviewed date:03/21/2024 05:33:48 PM Interpretation: Performing Lab:[facility], [address] [facility], Phone - [phone], [facility] Notes/Report: Glucose 106 70-99 mg/dL BUN 10 [...] PM Interpretation: Performing Lab: Notes/Report: HbA1c 6.6 Testosterone, Serum Reviewed date:12/21/2024 08:24:02 AM Interpretation: Performing Lab:[facility], [address] [facility], Phone - [phone], Director - [facility] Notes/Report: Testosterone 859 8-60 ng/dL Reason For Referral Reason ADHD evaluation Diagnosis 1 Concentration defici t (R41.840) Referral Organization [facility], [facility] Referring Provider First Name Clark Referring Provider Last Name Netta Referring Provider Speciality Internal M edicine Referred Provider Specialty Psychologist General Notes Teresa Pollack 09/25/19 10:55:20 AM > sent to [facility] Referral Priority Routine Medications Medication SIG (Take, Route, Frequency, Duration) Notes Start Date End Date Status Ubrelvy 100 MG 1 tablet may take se cond dose at least 2 hours after first dose as needed Orally Once a day Active Ozempic (0.25 or 0.5 MG/DOSE) 2 MG/3ML 0.25mg Subcutaneous weekly Active Sertraline HCl 50 MG TAKE 1 TABLET BY [facility] EVERY DAY for 90 Active Finasteride 5 MG 1 tablet Orally Once a day for 30 days Active metFORMIN HCl 1000 MG TAKE 1 TABLET BY [facility] TWICE DAILY WITH A MEAL for 90 Active Fioricet 50-300-40 MG 2 capsule as neede d Orally every day for 30 days Active Atorvastatin Calcium 20 MG 1 tablet Oral ly Once a day for 90 days 06/18/2023 Active Ondansetron 4 MG 1 tablet on the [facility] and allow to dissolve Orally Once a day Active Nortriptyline HCl 25 MG 1 capsule at [facility] Orally Once a day for 30 days 01/08/2024 Active Meloxicam 15 MG TAKE 1 TABLET BY [facility] EVERY DAY for 30 Active Multivitamin Active Cetirizine HCl 10 MG 1 tablet Orally Once a day Active Finasteride 5 MG TAKE 1 TABLET BY [facility] EVERY DAY for 30 Active Farxiga [...] Problem Status W/U Status Risk Notes Problem 819981598 Type 2 diabetes mellitus without complication, without long-term current use of insulin (E11.9) Active confirmed Problem Gender dysphoria (07602591) Gender dysphoria (F64.9) Active confirmed Problem 26441101 Anxiety (F41.9) Active confirmed Problem 36658178 SESAR (obstructive sleep apnea) (G47.33) Active confirmed Problem 537279260 MDD (major depressive disorder), recurrent episode, moderate (F33.1) Active confirmed Problem 009379441 Asthma, mild intermittent, well-controlled (J45.20) Active confirmed Problem 72190948 Concentration deficit (R41.840) Active confirmed Problem 748887821 Chronic migraine w/o aura w/o status migrainosus, not intractable (G43.709) Active confirmed Problem Endometrial hyperplasia without atypia (58251951085207 8) Endometrial hyperplasia without atypia (N85.00) Active [...] N/A Encounters Encounter Location Date Provider Diagnosis [address] [address] 03/17/2024 Clark Chadwick Chronic migraine w/o aura [...] left shoulder M25.512 and Cerumen impaction H61.[address] [address] 06/17/2024 Clark Tochtrop Chronic migraine w/o aura [...] High risk sexual behavior, unspecified type Z72.[address] [address] 07/22/2024 Clark Tochtrop Finger pain, right M79.[address] [address] 09/21/2024 Clark Tochtrop Chronic migraine w/o aura [...] unspecified type Z72.51 and Concentration deficit R41.[address] [place] [address] 12/20/2024 [facility] Chronic migraine w/o aura w/o status migrainosus, [...] ; Concentration deficit R41.840 and Intertrigo L30.[address] [address] 07/05/[address] [address] 09/22/[address] [address] 09/30/2024 [facility] Gender dysphoria F64.[address] [address] 12/21/2024 [facility], [address] [address] 03/23/[address] [address] 04/02/2024 [facility], [address] [address] 04/02/2024 [facility] Gender dysphoria F64.[address] [address] 06/24/2024 [facility] Gender dysphoria F64.[address] [address] 07/05/2024 [facility] Gender dysphoria F64.9 [facility], [facility] [address] [place] [address] 07/17/2024 [facility], [facility] [address] [place] [address] 09/22/2024 [facility], [facility] [address] [place] [address] 09/30/2024 [facility], [facility] [address] [place] [address] 11/03/2024 [facility], [facility] [address] [place] [address] 11/15/2024 [facility], [facility] [address] [place] [address] 11/16/2024 [facility], [address] [address] 12/21/2024 [facility], [facility] [address] [place] [address] 12/21/2024 [facility], [facility] [address] [place] [address] 12/21/2024 [facility], [facility] [address] [place] [address] 12/21/2024 [facility] Gender dysphoria F64.[address] [address] 02/23/2025 [facility] Assessments Encounter Date Diagnosis (ICD Code) Assessment Notes Treatment Notes Treatment Clinical Notes Section Notes 03/17/2024 Chronic migraine w/o aura w/o status migrainosus, not intractable (ICD-10 - G43.709) 12/21/2024 Gender dysphoria (ICD-10 - F64.9) 12/20/2024 Type 2 diabetes mellitus without complication, without long-term current use of insulin (ICD-10 - E11.9) 12/20/2024 Chronic migraine w/o aura w/o status migrainosus, not intractable (ICD-10 - G43.709) 09/30/2024 Gender dysphoria (ICD-10 - F64.9) 09/21/2024 Type 2 diabetes mellitus without complication, without long-term current use of insulin (ICD-10 - E11.9) 06/24/2024 Gender dysphoria (ICD-10 - F64.9) 07/22/2024 Finger [...] us know if anything changes with it 07/05/2024 Gender dysphoria (ICD-10 - F64.9) 09/21/2024 Chronic migraine w/o aura w/o status migrainosus, not intractable (ICD-10 - G43.709) 06/17/2024 Chronic migraine w/o aura w/o status migrainosus, not intractable (ICD-10 - G43.709) 04/02/2024 Gender dysphoria (ICD-10 - F64.9) 06/17/2024 Type 2 diabetes mellitus without complication, without long-term current use of insulin (ICD-10 - E11.9) 09/21/2024 Anxiety (ICD-10 - F41.9) 12/20/2024 Anxiety (ICD-10 - F41.9) 03/17/2024 Type 2 diabetes mellitus without complication, without long-term current use of insulin (ICD-10 - E11.9) 03/17/2024 Anxiety (ICD-10 - F41.9) 12/20/2024 MDD (major depressive disorder), recurrent episode, moderate (ICD-10 - F33.1) 09/21/2024 MDD (major depressive disorder), recurrent episode, moderate (ICD-10 - F33.1) 06/17/2024 Anxiety (ICD-10 - F41.9) 09/21/2024 Asthma, mild intermittent, well-controlled (ICD-10 - J45.20) 06/17/2024 MDD (major depressive disorder), recurrent episode, moderate (ICD-10 - F33.1) 12/20/2024 Asthma, mild intermittent, well-controlled (ICD-10 - J45.20) 03/17/2024 MDD (major depressive disorder), recurrent episode, moderate (ICD-10 - F33.1) 03/17/2024 Asthma, mild intermittent, well-controlled (ICD-10 - J45.20) 12/20/2024 SESAR (obstructive sleep apnea) (ICD-10 - G47.33) 09/21/2024 SESAR (obstructive sleep apnea) (ICD-10 - G47.33) 06/17/2024 Asthma, mild intermittent, well-controlled (ICD-10 - J45.20) 06/17/2024 SESAR (obstructive sleep apnea) (ICD-10 - G47.33) 09/21/2024 Endometrial hyperplasia without atypia (ICD-10 - N85.00) 12/20/2024 Endometrial hyperplasia without atypia (ICD-10 - N85.00) 03/17/2024 SESAR (obstructive sleep apnea) (ICD-10 - G47.33) 03/17/2024 Endometrial hyperplasia without atypia (ICD-10 - N85.00) 12/20/2024 Micturition syncope (ICD-10 - R55) 09/21/2024 Micturition syncope (ICD-10 - R55) 06/17/2024 Endometrial hyperplasia without atypia (ICD-10 - N85.00) 06/17/2024 Micturition syncope (ICD-10 - R55) 09/21/2024 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 Will be scanned into the chart 09/21/2024 Gender dysphoria (ICD-10 - F64.9) Informed consent reviewed and signed at today's appointment. 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 Will be scanned into the chart 09/21/2024 Acute pain of left shoulder (ICD-10 - M25.512) 12/20/2024 Acute pain of left shoulder (ICD-10 - M25.512) 03/17/2024 Gender dysphoria (ICD-10 - F64.9) Informed consent reviewed and signed at today's appointment. Will be scanned into the chart 03/17/2024 Acute pain of left shoulder (ICD-10 - M25.512) 12/20/2024 Cerumen impaction (ICD-10 - H61.20) 09/21/2024 Cerumen impaction (ICD-10 - H61.20) 06/17/2024 Acute pain of left shoulder (ICD-10 - M25.512) 09/21/2024 High risk sexual behavior, unspecified type (ICD-10 - Z72.51) 06/17/2024 Cerumen impaction (ICD-10 - H61.20) 12/20/2024 High risk sexual behavior, unspecified type (ICD-10 - Z72.51) 03/17/2024 Cerumen impaction (ICD-10 - H61.20) 06/17/2024 High risk sexual behavior, unspecified type (ICD-10 - Z72.51) 12/20/2024 Concentration deficit (ICD-10 - R41.840) 09/21/2024 Concentration deficit (ICD-10 - R41.840) 12/20/2024 Intertrigo (ICD-10 - L30.4) Plan Of Treatment Pending Test Test Name Order Date EAR IRRIGATION - Bilateral 03/17/2024 EAR IRRIGATION - Bilateral 12/18/2023 Next Appt Details Provider Name:Clark carreon, 03/21/2025 02:30:00 PM, [address] [place], [address], Insurance Providers Payer Name Payer Address Payer Phone Subscriber Number Group Number Insured Name Patient Relationship to Insured Coverage Start Date Coverage End Date [facility] [address] [place] [phone] [id number] Mabel Gonzalez Self - patient is the [...]
[2025-03-02] MEDS: KETOROLAC 15 MG/ML VIAL (*BKC) IV PUSH (06:30)
[2025-03-02] MEDS: ACETAMINOPHEN 500 MG TABLET 1000 MG PO (06:30)
[2025-03-02] MEDS: LACTATED RINGERS 1,000 ML 30 ML IV CONT ×2 (06:30→09:14)
[2025-03-02 06:32] LABS: Glucose Point of Care 137 mg/dl (65-105)
--- NOTE | 2025-03-02 06:33 | ECG_ITS ---
Test Date: 2025-03-02 06:54:08 Measurements Intervals [place] Rate: 53 P: 37 [place]: 157 QRS: 1 QRSD: 97 T: -4 QT: 393 QTc: 371 Interpretive Statements SINUS BRADYCARDIA WITH SINUS ARRHYTHMIA DELAYED PRECORDIAL R/S TRANSITION VOLTAGE CRITERIA FOR LVH BORDERLINE T WAVE ABNORMALITY- ANT/INF LEADS BORDERLINE ECG No previous ECG available for comparison Electronically Signed On 03-02-2025 07:02:36 CDT by Elias Sagastume D.O.
--- NOTE | 2025-03-02 07:08 | WPDHPUPDATE1 ---
History and Physical Update Update Date/Time: 03/02/25 07:08 History and Physical has been reviewed, including an updated exam of the patient. There are NO changes in the patient's condition. Risks, benefits, and alternatives have been discussed and questions answered. Patient agrees to proceed with procedure.
[2025-03-02 07:10] LABS: BEDSIDEPREGUCG Negative (Negative)
--- NOTE | 2025-03-02 07:20 | P.PNAN_ITS ---
Anes - Initial Pre Proc Eval Procedure: Operation Date: 03/02/25 07:30 Proposed Procedures p Robotic Laparoscopic Assisted Total Vaginal Hysterectomy with Bilateral Salpingectomy - Mikie Lomeli MD Date/Time: 03/02/25 07:20 Surgeon: Mikie Lomeli MD Pre Op Diagnosis: abnormal uterine bleeding Patient Data Age: 35 Gender: F Height: 1.6 m Weight: 96.5 kg Last Vital Signs Temp 98.4 F 03/02/25 07:07 Pulse 60 03/02/25 07:07 BP 131/85 03/02/25 07:07 Pulse Ox 97 03/02/25 07:07 O2 Del Method Room Air 03/02/25 07:07 Allergies Allergy/AdvReac Type Severity Reaction Status Date / Time No Known Allergies Allergy Verified 02/28/25 15:09 Home Medications ?Medication ?Instructions ?Recorded ?Confirmed ?Type ruzvpscuzj-hvulqhyoodwuu-snkfmrns 1 cap PO Q8H PRN Migraine Headache 01/04/20 02/28/25 History 50 mg-300 mg-40 mg capsule cetirizine 10 mg capsule 10 mg PO DAILY PRN Allergy Symptoms 01/04/20 02/28/25 History multivitamin (Daily Multi-Vitamin 1 tablet PO DAILY 01/04/20 02/28/25 History tablet) atorvastatin 20 mg tablet 20 mg PO DAILY 07/02/23 02/28/25 History finasteride 5 mg tablet 5 mg PO DAILY 07/02/23 02/28/25 History metformin 1,000 mg tablet 1,000 mg PO BID 07/02/23 02/28/25 History omega 0-jiu-jfm-fish oil 1,200 mg 4 cap PO AC 07/02/23 02/28/25 History (144 mg-216 mg) capsule (Fish Oil) propranolol 10 mg tablet 10 mg PO .prn 07/02/23 02/28/25 History testosterone enanthate 100 mg/0.5 200 mg subcut WEEKLY 07/02/23 02/28/25 History mL subcutaneous auto-injector rimegepant 75 mg disintegrating 1 mg PO DAILY PRN migraine headache 11/19/23 02/28/25 History tablet (Nurtec ODT) drospirenone (contraceptive) 4 mg 4 mg PO DAILY #3 packets 07/12/24 02/28/25 Rx (28) tablet (Slynd) dapagliflozin propanediol 10 mg 10 mg PO DAILY 12/07/24 02/28/25 History tablet (Farxiga) sertraline 50 mg tablet 75 mg PO DAILY 12/07/24 02/28/25 History L-theanine 100 mg PO DAILY 01/12/25 02/28/25 History calcium carbonate (Calcium 600) 600 mg PO DAILY 01/12/25 02/28/25 History docusate sodium 100 mg capsule 200 mg PO BID 01/12/25 02/28/25 History (Col-Rite) vitamin B complex (Balanced B-50 1 tablet PO DAILY 01/12/25 02/28/25 History tablet) scopolamine base 1 mg over 3 days 1 patch transdermal ONCE #1 ea 02/28/25 Rx transdermal patch Laboratory Tests 03/02/25 03/02/25 06:23 07:07 POC Capillary Glucose 137 H mg/dl (65-105) POC Urine HCG, Qual Negative (Negative) Patient hx anesthesia problems: none Family hx anesthesia problems: none Results Review: All pre-operative results and documents have been reviewed as part of the pre- operative evaluation. [facility] Past Medical History Medical History SESAR (obstructive sleep apnea) Hyperlipidemia Type 2 diabetes mellitus Morbid obesity Migraine Benign ovarian tumor Asthma Anxiety Surgical History Surgical History H/O dilation and curettage History of hysteroscopy [place] teeth removed History of laparoscopy Family History Family History Sibling Breast cancer Mother Breast cancer Diabetes mellitus Hypertension Grandparent Diabetes mellitus Acute myocardial infarction Hypertension Cerebrovascular accident Throat cancer Pancreatic cancer Social History Social History Smoking status: Light tobacco smoker Tobacco type: cigarettes Additional smoking assessment comments: Very rarely Alcohol intake: current Substance use: current Substance use type: marijuana Other substance usage details: Rarely Lack of Transportation: No Lack of Food: Never True Current Housing: I Have Housing Concerned About Future Housing: No Difficulty Paying Gas/Electric Bills: YES Difficulty Paying for Meds: No Currently Unemployed: No Education: Bachelor's Degree Living arrangements: with roommate(s) Spiritual care concerns: No Anes - Eval Final PreProcedure Day of Procedure 03/02/25 07:20 Patient weight: obese Heart: regular rate and rhythm Lungs: clear to auscultation Airway: Mallampati scale class II Neurological: alert and oriented Last oral intake: >/= 8 hours ASA classification: III Emergent: no Anesthetic plan: proceed Anesthesia type and monitoring: general ETT and standard monitoring Results Review: All pre-operative results and documents have been reviewed as part of the pre- operative evaluation. Informed Consent: The patient's anesthetic plan and its attendant risks and benefits were discussed with the patient/family/POA. Questions were solicited and answers provided to the satisfaction of the patient/family/POA.
[2025-03-02] MEDS: metroNIDAZOLE 500 MG/ISO 100ML 500 MG/100 ML BAG 100 MG IVPB (07:22)
[2025-03-02] MEDS: ceFAZolin 2 GM/D5W 50 ML 2 GM/50 ML BAG IVPB (07:22)
[2025-03-02] MEDS: BUPivacaine HCL 0.5% PF 30 ML VIAL INFILTRATE (08:11)
--- NOTE | 2025-03-02 08:37 | S_PTH ---
PATIENT: Mabel Gonzalez LOC: [facility] U#:[id number] AGE/SX: 35/F ROOM: RE03/02/[address]: Mikie Lomeli MD : 1990 BED: DIS: 03/02/2025 SPEC #: [id number] RECD: 03/02/25 09:42 STATUS: GRETA REQ #: [id number] LBANE: 03/02/25 08:[address]: Mikie Lomeli DEPT: [facility] Surgical RECD BY: Gretchen Malcolm ENTERED: 03/02/25 09:42 SP TYPE: Surgical OTHR DR: PHYSICIAN NOT ON STAFF Tissues: A - Uterus Procedures: Hematoxylin and Eosin Stain Gross and Microscopic Level 5
--- NOTE | 2025-03-02 09:13 | W.PM.PROC2 ---
Procedure Note - Detailed Date of Procedure 03/02/25 Pre-op Diagnosis abnormal uterine bleeding Post-op Diagnosis Same Procedure Performed Laparoscopic robotic assisted total vaginal hysterectomy with bilateral salpingectomy left oophorectomy Surgeon Mikie Lomeli MD [employer] Keron Montano Anesthesia General Indications abnormal uterine bleeding persistent , not responding satisfactorily to hormonal treatments. She is using testosterone and has a history of atypical hyperplasia of the endometrial lining. She has opted for definitive treatment with hysterectomy. she does not has never desired any conception. Findings Normal size uterus mildly enlarged left ovary normal right fallopian tube left fallopian tube with cyst on the end of the tube which was removed with the tube. Description of Procedure After informed consent was obtained she was taken to the operating room and general endotracheal anesthesia was administered. She was placed in low lithotomy position. An exam under anesthesia was performed. Uterus normal size, no adnexal masses palpated. She was and prepped and draped in sterile fashion. Louise catheter placed in bladder. Attention was turned to the vagina speculum was inserted. Single-tooth tenaculum placed on anterior lip of the cervix the uterus sounded to 8 cm. The cervix was dilated to a 8 Mohan dilator. A size 8 uterine manipulator was inserted and secured. A size 3.0 colp cup was secured in the vagina. Then attention was turned to the abdomen with new sterile gloves. .5% marcaine injected subcutaneously. An incision was made horizontal 2 cm above the umbilicus. A Veress needle was inserted. A Pneumoperitoneum of 15 mm per mercury was obtained. No abdominal or pelvic adhesions noted. A small incision was made approximately 6 cm lateral to the port on the left side of the port. A size 8mm robotic port was inserted under laparoscopic visualization into the abdomen on the left side. The same was done on the right side. And medial and superior to this Marcaine was injected and a 10 mm port was inserted. She was placed in steep Trendelenburg position. The robotic arms were attached. Attention was turned to the right round ligament which was ligated. The right side of the bladder was dissected from the lower uterine segment and upper cervix. The right fallopian tube was ligated from medial salpinx. The cystic structure at the end of the fallopian tube was included in this. It was attached mildly to the right ovary. Which the adhesion was lysed. The right ovarian ligament was ligated. The a posterior leaf of the broad ligament was further dissected. The ascending uterine vessels on the right were cauterized. The uterine vessels were ligated. Attention was turned to the left round ligament which was ligated and the anterior leaf of the broad ligament was dissected anteriorly. The rest of the vesicouterine peritoneum was dissected off of the uterus. The left infundibulopelvic ligament ligated. The ascending uterine vessels were ligated. The uterine arteries were ligated. The cardinal ligaments were ligated. This was done on both sides. An incision was made anterior colpotomy incision was made and this was carried around until the cervix was removed from the vagina. The uterus and cervix were removed through the vagina. The vaginal cuff was closed in a running fashion with 0 V lock suture. Hemostasis was noted. The pelvis was irrigated. Hemostasis noted. Hemoderm was applied in the pelvis. The patient was taken out of Trendelenburg position. The pneumoperitoneum was released and the ports were removed. The skin incisions closed with 4-0 Vicryl and Dermabond applied. The patient was extubated in operating room. The sponge count was correct x2. Patient tolerated procedure well and was taken to recovery in stable condition. Estimated Blood Loss 20 Drains No Packing No Pathology Yes ( Uterus and cervix and right and left fallopian tube left fallopian tube with cyst on it. left Ovary) Complications No immediate complications Condition Stable Disposition Same day [facility] Billing Surgery - Charge Forward: Surgery Billing
[2025-03-02] MEDS: fentaNYL CITRATE INJ (*CRX) 100 MCG/2 ML VIAL 25 MCG IV PUSH ×2 (09:30→10:18)
[2025-03-02 09:38] LABS: Glucose Point of Care 126 mg/dl (65-105)
--- NOTE | 2025-03-02 10:14 | SUR.PHASEI ---
Left a message for Dr. Lomeli requesting orders.
--- NOTE | 2025-03-02 10:32 | SUR.PHASEI ---
RN had no orders for patient to stay or go home. After talking to Dr. Lomeli patient wants to go home today.
[2025-03-02] MEDS: oxyCODONE HCL (*CRX) 5 MG TAB IR PO (11:34)
== END 2025-03-02 12:26 | disposition home or self-care (01) ==
PROVIDERS: Anesthesiology; Visit Provider Obstetrics & Gynecology
PROC: (CPT 58552; principal; 2025-03-02 07:30)
DX: N93.9 Abnormal uterine and vaginal bleeding, unspecified (principal); N72 Inflammatory disease of cervix uteri; N88.8 Other specified noninflammatory disorders of cervix uteri; D27.1 Benign neoplasm of left ovary; N83.8 Other noninflammatory disorders of ovary, fallopian tube and broad ligament; E11.9 Type 2 diabetes mellitus without complications; Z72.0 Tobacco use; F12.90 Cannabis use, unspecified, uncomplicated; E66.9 Obesity, unspecified; Z68.37 Body mass index [BMI] 37.0-37.9, adult
CPT/HCPCS: 58552; S2900; 82948; 88307; 93005; A9270; J0690; J1100; J1836; J1885; J2250; J2405; J2704; J3010; J7030; J7120